=== PATIENT | female | born 1995 | race Caucasian/White ===

== ENCOUNTER 2018-02-26 11:59 | Inpatient (IN) | payer MEDICAID, OTHER ==
[2018-02-26] VITALS (43 sets, daily range): BP systolic 109–156; BP diastolic 53–91
[~2018-02-26] VITALS: Ht 165.1 cm; Wt 134.3 kg
--- NOTE | 2018-02-26 13:11 | History & Physical-OB ---
OB - Chief Complaint & HPI Date/Time Date of Admission: Date of Admission: 02/26/18 Time Seen by Provider: 16:00 Chief Complaint/History OB-Reason for Admission/Chief: Rupture of Membranes Hx : 1 Hx Para: 0 Hx Last Menstrual Period: 06/16/2017 Expected Date of Delivery: Mar 19, 2018 Gestational Age in Weeks: 37 Gestational Age in Days: 0 Other reason for admission: Premature Rupture of Membranes 37 weeks Gestation Admission Nurse Assessment Rev: Yes History of Labs A positive, antibody screen negative RPR NR HIV neg Hep B Neg Hep C Neg Varicella Immune Rubella Immune Urine Cx no growth Urine Drug Screen Neg QNatal - normal, male fetus Quad Screen - normal 1 hour GTT - 116 Allergies and Home Medications Allergies Coded Allergies: Penicillins (Verified Allergy, Unknown, 02/26/18) Patient Home Medication List Home Medication List Reviewed: Yes OB - History Hx of Present Care: Yes Ultrasounds: Normal mid trimester US Obstetrical Complications: None Medical Complications: Other (Morbid Obesity, Hx Depression, Constipation, Heartburn, Insomnia) Information Induced Hypertension: No Maternal Gestational Diabetes: No Hemorrhage: No Obstetrical History Hx : 1 Hx Para: 0 Hx # Term Pregnancies: 0 Hx # Pregnancies: 0 Number of Living Children: 0 Hx Termination: No Hx Total # of Abortions (Spona: 0 Hx Multiple Gestation: No Hx Ectopic : No Hx Stillbirth: No Hx Complication: No Hx Induced Hypertens: No Hx Maternal Gestational Diabet: No Hx Hemorrhage: No Delivery History Hx Dystocia: No Hx Forceps Assisted Delivery: No Hx Vacuum Extraction Assisted: No Hx Placenta Abnormality: No Hx Distress: No Hx Large For Gestational Age I: No Hx Small for Gestational Age I: No Hx Section: No Hx Vaginal Delivery Post C-Sec: No Hx Blood Disorders: No Adverse Rxn to Tranfusion: No Patient Past Medical History Depression Obesity Social History/Family History HIV/AIDS: No Recent Infectious Disease Expo: No Sexually Transmitted Disease: No Alcohol Use: Denies Use Recreational Drug Use: No Smoking Cessation: Never smoker 2nd Hand Smoke Exposure: No Immunizations Hepatitis B: Yes Tetanus Booster (TDap): Less than 5yrs Rubella: immune RPR/VDRL: Negative GBS Status: Negative HBsAG: Negative OB - Admission Exam Physical Exam HEENT: NCAT Heart: Rhythm Normal Lungs: Clear Abdomen: Gravid Extremities: Normal Reflexes: Normal Cervical Dilatation: 3cm Effacement: 75% Station: -2 Membranes: Ruptured Amniotic Fluid: Clear Heart Rate: 130's Accelerations: Accelerations Present Decelerations: No Decelerations Short Term Variability: Present Senior Living Variability: Average (6-25) Contractions on Admission: None OB - Assessment/Plan/Diagnosis Assessment Assessment: rupture of membranes Admission Dx Rupture of Membranes 37 weeks Gestation Complicated by Obesity Admission Status: Inpatient Order (span 2 midnights) Reason for Inpatient Admission: delivery and care Plan Plan: Other Other Plan -admit labs - CBC, Type and Screen -Epidural PRN pain -given that pt had SROM at 0630 and is not lenny, augment with pitocin per protocol -continuous EFM, may place FSE if needed for monitoring -VS per protocol -anticipate delivery Copy Copies To 1: SG SALINAS MARGARET E DO Feb 26, 2018 13:11
[2018-02-26] MEDS ORDERED: OXYTOCIN/NORMAL SALINE 500 ML IV SCH ×2 (13:12→22:21)
[2018-02-26] MEDS ORDERED: CATHETER FLUSH 10 ML SYR IV SCH (14:00)
[2018-02-26] MEDS: D5 LR IV SOLUTION 1,000 ML IV SCH ×2 (14:04→21:35)
--- OUTSIDE RECORDS SUMMARY | 2018-02-26 14:16 | XMS REPORT ---
Author Author KRISH SIEGEL [facility] Address [address] [place] [address] Care Team Providers Care Scene Shifter Name Role Phone KRISH SIEGEL Unavailable PROBLEMS Type Condition ICD9-CM Code YDC88-IV Code Onset Dates Condition Status SNOMED Code Problem Insomnia, unspecified type G47.00 Active 824328149 Problem Heartburn R12 Active 47608776 Problem Nausea and vomiting during O21.9 Active 81289166 Problem BMI 40.0-44.9, adult Z68.41 Active 646579327 Problem Encounter for screening for Streptococcus B Z36.85 Active 493904887 Problem Uterine size-date discrepancy in third trimester O26.843 Active 931019350 Problem Diseases of the digestive system complicating , third trimester O99.613 Active 92849112 Problem Supervision of normal first in third trimester Z34.03 Active 66426408 Problem Constipation, unspecified K59.00 Active 42744785 Problem Obesity complicating , third trimester O99.213 Active 733021342261 ALLERGIES Substance Reaction Event Type Date Status Penicillin V Potassium hives Drug Allergy Oct, Active ENCOUNTERS Encounter Location Date Diagnosis [facility] [address] [facility] [id number][place] [id number] Feb, [facility] [address] [facility] [id number][place] [id number] Jan, [facility] [address] [id number][place] [id number] Jan, Supervision of normal first in third trimester Z34.03 ; Uterine size-date discrepancy in third trimester O26.843 ; Diseases of the digestive system complicating , third trimester O99.613 ; Constipation, unspecified K59.00 ; Heartburn R12 ; Nausea and vomiting during O21.9 ; Obesity complicating , third trimester O99.213 ; Insomnia, unspecified type G47.00 ; BMI 40.0-44.9, adult Z68.41 and Encounter for screening for Streptococcus B Z36.85 [facility] [id number] [place] [id number] Jan, Supervision of normal first in third trimester Z34.03 ; Diseases of the digestive system complicating , third trimester O99.613 ; Heartburn R12 ; Obesity complicating , third trimester O99.213 ; Constipation, unspecified K59.00 ; Insomnia, unspecified type G47.00 ; Uterine size-date discrepancy in third trimester O26.843 and BMI 45.0-49.9, adult Z68.42 [employer] [id number], [place] [id number] Dec, [facility] [id number], [place] [id number] Dec, Supervision of normal first in third trimester Z34.03 ; Encounter for immunization Z23 ; Nausea and vomiting during O21.9 ; Obesity complicating , third trimester O99.213 ; Diseases of the digestive system complicating , third trimester O99.613 ; Heartburn R12 and Constipation, unspecified K59.00 [facility] [employer] [id number][place] [id number] Dec, Supervision of normal first in third trimester Z34.03 ; Obesity complicating , third trimester O99.213 ; Diseases of the digestive system complicating , third trimester O99.613 ; Constipation , unspecified K59.00 ; Heartburn R12 ; Insomnia, unspecified type G47.00 ; Nausea and vomiting during O21.9 and BMI 45.0-49.9, adult Z68.42 [employer] [id number], [place] [id number] November, [employer] [id number], [place] [id number] November, Obesity complicating , third trimester O99.213 ; Supervision of normal first in third trimester Z34.03 ; Constipation, unspecified K59.00 ; Diseases of the digestive system complicating , third trimester O99.613 ; Heartburn R12 ; Nausea and vomiting during O21.9 and BMI 45.0-49.9, adult Z68.42 [facility] [address] [id number][place] [id number] November, [facility] [address] [id number], [place] [id number] Oct, Supervision of normal first in second trimester Z34.02 ; Insomnia, unspecified type G47.00 ; Obesity complicating in second trimester O99.212 ; Heartburn R12 ; Other specified related conditions , second trimester O26.892 ; Nausea and vomiting during O21.9 and BMI 40.0-44.9, adult Z68.41 [facility] [address] [facility] [id number][place] [id number] Oct, [facility] [address] [address] [id number][place] [id number] Oct, Dental examination Z01.20 [facility] [address] [id number], [place] [id number] Sep, Supervision of normal first in second trimester Z34.02 ; Obesity complicating in second trimester O99.212 and Insomnia, unspecified type G47.00 [facility] [address] [id number][place] [id number] Sep, Leukorrhea, vaginal, noninfectious N89.8 [facility] [address] [id number], [place] [id number] Sep, Supervision of normal first in first trimester Z34.01 and Obesity affecting in first trimester O99.211 [facility] [address] [address] [id number], [place] [id number] Aug, Supervision of normal first in first trimester Z34.01 and Obesity affecting in first trimester O99.211 [facility] [address] [id number][place] [id number] Aug, [facility] [address] [id number], [place] [id number] Aug, Supervision of normal first in first trimester Z34.01 and Obesity affecting in first trimester O99.211 [facility] [address] [id number], [place] [id number] Jul, [facility] [address] [id number], [place] [id number] Jul, BMI 40.0-44.9, adult Z68.41 ; Supervision of normal first in first trimester Z34.01 ; Leukorrhea, vaginal, noninfectious N89.8 and Obesity affecting in first trimester O99.211 [place] [id number] [place] [address] Jul, [facility] [address] [id number][place] [address] Jun, Amenorrhea N91.2 [facility] [id number], [place] [id number] Jun, Strep throat J02.[address] [place] [id number] May, Abscess L02.91 [facility] [address]00565100[place], [place] [address] Jun, Vaginal discharge N89.8 ; Cellulitis, unspecified L03.90 ; Cutaneous abscess, unspecified L02.91 and Obesity E66.[address] [place] [id number] Mar, Abscess and cellulitis 682.[address] [place] [id number] Mar, Abscess and cellulitis 682.9 [place] [id number] [id number] Feb, Deep folliculitis 704.[address] Skin [address] [facility] [address] [id number], [place] [address] 16 Dec, 2014 Conjunctivitis 372.30 and Environmental allergies V15.09 [facility] [address]00565100[place], [place] [address] [address], [address] [facility] [address] [id number], [place] [address] Oct, [facility] [address]100[place], [place] [address] Sep, [facility] [address] [id number], [place] [address] Sep, [facility] [address]00565[place] [address] Jul, [facility] [address] [id number], [place] [address] Jul, [facility] [address]65100[place], [place] [address] May, [facility] [address] [id number], [place] [address] May, [facility] [address]65100[place], [place] [address] Apr, [facility] [address] [id number], [place] [address] Apr, [facility] [address]65100[place], [place] [address] Apr, [facility] [address] [id number], [place] [address] Apr, [facility] [address]65100[place], [place] [address] Mar, [facility] [address] [id number], [place] [address] Mar, [facility] [address] [place] [address] 23 Mar, 2014 [facility] [place] [facility] [address] [id number] [place] [address] 23 Mar, 2014 [facility] [place] [facility] [address] [id number] [place] [address] 16 Mar, 2014 [facility] [place] [facility] [address] [id number] [place] [address] 16 Mar, 2014 [facility] [place] [facility] [address] [id number] [place] [address] 15 Mar, 2014 [facility] [place] [facility] [address] [id number] [place] [address] 15 Mar, 2014 [facility] [place] [facility] [address] [id number] [place] [address] Mar, [facility] [place] [facility] [address] [id number] [place] [address] Mar, [facility] [address] [facility] [id number][place] [id number] Oct, [facility] [place] [facility] [address] [id number] [place] [address] Oct, [facility] [address] [facility] [id number][place] [id number] Oct, [facility] [place] [facility] [address] [id number][place] [address] Oct, [facility] [place] [facility] [address] [id number], [place] [address] Aug, [facility] [place] [facility] [address] [id number] [place] [address] Aug, [facility] [place] [facility] [address] [id number] [place] Mar, [facility] [place] [facility] [address] [id number] [place] [address] November, [facility] [place] [facility] [address] [facility] [id number] [place] [address] November, [facility] [address] [facility] [id number], [place] [address] Oct, [facility] [address] [id number], [place] [address] Oct, [facility] [address] [id number], [place] [address] Aug, [facility] [address] [id number], [place] [address] May, [facility] [address] [id number], [place] [address] May, [facility] [address] [id number], [place] [address] May, IMMUNIZATIONS No Known Immunizations SOCIAL HISTORY Never Assessed REASON FOR VISIT nina/prophy PLAN OF CARE Activity Details Follow Up 30min Restorative UR Reason: VITAL SIGNS Blood pressure systolic 120 mmHg 2017-10-22 Blood pressure diastolic 82 mmHg 2017-10-22 MEDICATIONS Medication Instructions Dosage Frequency Start Date End Date Duration Status Benadryl Active Ambien 10 mg Orally Once a day 1 tablet at bedtime as needed 24h Sep, 28 days Active 1 Active Tylenol Active RESULTS No Results PROCEDURES Procedure Date Ordered Result Body Site COMP ORAL EVALUATION - NEW/EST PT October 22, 2017 INTRAORL-PERIAPICAL 1 FILM [id number] October 22, 2017 PROPHYLAXIS - ADULT October 22, 2017 BITEWINGS - FOUR FILMS October 22, 2017 INSTRUCTIONS MEDICATIONS ADMINISTERED No Known Medications MEDICAL (GENERAL) HISTORY Type Description Date Medical History obesity Medical History headache symdrome Medical History psychiatric disorders depression Medical History due date 03/19/2018 Surgical History Lizella Teeth Hospitalization History [facility]--Couldnt fill baby move for over an hour. Sent home 01/2018
--- OUTSIDE RECORDS SUMMARY | 2018-02-26 14:17 | XMS REPORT ---
Author Author SG SALINAS Organization [facility] Address [address] [place] [address] Care Team Providers Care Precast Worker Name Role Phone SG SALINAS Unavailable PROBLEMS Type Condition ICD9-CM Code [id number] Code Onset Dates Condition Status SNOMED Code Problem BMI 40.0-44.9, adult Z68.41 Active 525134485 Problem Nausea and vomiting during O21.9 Active 22503636 Problem Insomnia, unspecified type G47.00 Active 386315229 Problem Uterine size-date discrepancy in third trimester O26.843 Active 192572424 Problem Constipation, unspecified K59.00 Active 36384172 Problem Supervision of normal first in third trimester Z34.03 Active 56476348 Problem Heartburn R12 Active 32391100 Problem Obesity complicating , third trimester O99.213 Active 570045252021 Problem Diseases of the digestive system complicating , third trimester O99.613 Active 66340450 ALLERGIES Substance Reaction Event Type Date Status Penicillin V Potassium hives Drug Allergy Sep, Active ENCOUNTERS Encounter Location Date Diagnosis [facility] [address] [facility] [id number] [place] [id number] Jan, [place] [address] EZ-AppsE [id number], [place] [id number] Jan, Supervision of normal first in third trimester Z34.03 ; Diseases of the digestive system complicating , third trimester O99.613 ; Heartburn R12 ; Obesity complicating , third trimester O99.213 ; Constipation, unspecified K59.00 ; Insomnia, unspecified type G47.00 ; Uterine size-date discrepancy in third trimester O26.843 and BMI 45.0-49.9, adult Z68.42 [facility] Afrigator InternetE [id number], [place] [id number] Dec, [facility] [address] [id number], [place] [address] Dec, Supervision of normal first in third trimester Z34.03 ; Encounter for immunization Z23 ; Nausea and vomiting during O21.9 ; Obesity complicating , third trimester O99.213 ; Diseases of the digestive system complicating , third trimester O99.613 ; Heartburn R12 and Constipation, unspecified K59.00 [facility] [id number], [place] [address] Dec, Supervision of normal first in third trimester Z34.03 ; Obesity complicating , third trimester O99.213 ; Diseases of the digestive system complicating , third trimester O99.613 ; Constipation , unspecified K59.00 ; Heartburn R12 ; Insomnia, unspecified type G47.00 ; Nausea and vomiting during O21.9 and BMI 45.0-49.9, adult Z68.42 [facility] A[employer] InternetE [id number], [place] [id number] November, [employer] [id number], [place] [address] November, Obesity complicating , third trimester O99.213 ; Supervision of normal first in third trimester Z34.03 ; Constipation, unspecified K59.00 ; Diseases of the digestive system complicating , third trimester O99.613 ; Heartburn R12 ; Nausea and vomiting during O21.9 and BMI 45.0-49.9, adult Z68.42 [facility] [id number], [place] [address] November, [facility] [id number] [place] [address] Oct, Supervision of normal first in second trimester Z34.02 ; Insomnia, unspecified type G47.00 ; Obesity complicating in second trimester O99.212 ; Heartburn R12 ; Other specified related conditions , second trimester O26.892 ; Nausea and vomiting during O21.9 and BMI 40.0-44.9, adult Z68.41 [facility] [address] [id number] [place] [id number] Oct, [facility] [address] [id number], [place] [address] Oct, Dental examination Z01.20 [facility] [address] [id number], [place] [address] Sep, Supervision of normal first in second trimester Z34.02 ; Obesity complicating in second trimester O99.212 and Insomnia, unspecified type G47.00 [facility] [address] [id number], [place] [address] Sep, Leukorrhea, vaginal, noninfectious N89.8 [facility] [address] [id number], [place] [address] Sep, Supervision of normal first in first trimester Z34.01 and Obesity affecting in first trimester O99.211 [facility] [address] [id number], [place] [address] Aug, Supervision of normal first in first trimester Z34.01 and Obesity affecting in first trimester O99.211 [facility] [address] [id number], [place] [address] Aug, [facility] [address] [id number], [place] [address] Aug, Supervision of normal first in first trimester Z34.01 and Obesity affecting in first trimester O99.211 [facility] [address] [id number], [place] [id number] Jul, [facility] [address] [id number], [place] [address] Jul, BMI 40.0-44.9, adult Z68.41 ; Supervision of normal first in first trimester Z34.01 ; Leukorrhea, vaginal, noninfectious N89.8 and Obesity affecting in first trimester O99.211 [facility] [address]005[address] [address] Jul, [facility] [address] [id number], [place] [address] Jun, Amenorrhea N91.2 [facility] [address] [id number], [place] [id number] Jun, Strep throat J02.0 [place] [id number] [place] [id number] May, Abscess L02.91 [place] [address] [address] [place] [id number] [place] [address] Jun, Vaginal discharge N89.8 ; Cellulitis, unspecified L03.90 ; Cutaneous abscess, unspecified L02.91 and Obesity E66.9 [place] [id number] [place] [id number] Mar, Abscess and cellulitis 682.9 [place] [id number] [place] [id number] Mar, Abscess and cellulitis 682.9 [place] [id number] [place] [id number] Feb, Deep folliculitis 704.8 and Skin candidiasis 112.3 [place] [address] [place] [place] [id number] [place] [address] Dec, Conjunctivitis 372.30 and Environmental allergies V15.09 [place] [address] [place] [id number] [place] [address]- 2643 14 Oct, 2014 [facility] [address] [id number] [place] [address] 6383 Oct, [place] [address] [address] [place] [id number] [place] [address] Sep, [facility] [address] [place] [id number] [place] [address]- [address] Sep, [id number] [address] 08 Jul, 2014 [facility] [place] [facility] [address] [id number] [place] [address] 08 Jul, 2014 [facility] [place] [facility] [address] [id number], [place] [address] May, [facility] [place] [facility] [address] [id number] [place] [address] May, [facility] [place] [facility] [address] [id number] [place] [address] 4760 Apr, [facility] [place] [facility] [address] [id number] [place] [address]- 7231 Apr, [facility] [place] [facility] [address] [id number] [place] [address]- 360[address] Apr, [facility] [place] [facility] [address] [id number], [place] [address] 17[address] Apr, [facility] [place] [facility] [address] [id number], [place] [address] 25 Mar, 2013 [facility] [place] [facility] [address] [id number] [place] [address] 5[address] 25 Mar, 2013 [facility] [place] [facility] [address] [id number] [place] [address] 23 Mar, 2013 [facility] [place] [facility] [address] [id number] [place] [address] 8667 23 Sep, 2013 [facility] [place] [facility] [address] [id number], [place] [address] 16 Sep, 2013 [facility] [place] [facility] [address] [id number], [place] [address] 16 Sep, 2013 [facility] [place] [facility] [address] [id number][place] [address] 15 Mar, 2013 [facility] [place] [facility] [address] [id number][place] [address] 38[address] 15 Mar, 2013 [facility] [place] [facility] [address] [id number] [place] [address]- 1166 Mar, [facility] [address] [id number] [place] [address] 59[address] Mar, [facility] [address] [id number] [place] [id number] Oct, [facility] [address] [id number] [place] [address] Oct, [facility] [address] [id number] [place] [id number] Oct, [facility] [address] [id number] [place] [address] 1386 Oct, [facility] [place] [facility] [address] [id number] [place] [address]- 1826 Aug, [facility] [address] [id number] [place] [address] 5143 Aug, [facility] [address] [id number] [place] [address]- 8127 Mar, [facility] [place] [facility] [address] [id number] [place] [address] 60[address] November, [facility] [address] [id number] [place] [address]- 3[address] November, [facility] [place] [facility] [address] [id number] [place] [address]- 6346 Oct, [facility] [place] [facility] [address] [id number] [place] [address]- 2466 Oct, [facility] [place] [facility] [address] [id number] [place] [address]- 2537 Aug, [facility] [place] [facility] [address] [id number] [place] [address]- 7021 May, [facility] [place] [facility] [address] [id number] [place] [address]- 3892 May, [facility] [address] [id number] [place] [address] May, IMMUNIZATIONS No Known Immunizations SOCIAL HISTORY Never Assessed REASON FOR VISIT OB f/u-ishaan RN PLAN OF CARE Activity Details Follow Up 4 Weeks Reason: Pending Test GC/CHLAM URINE (STATE) VITAL SIGNS Height 66 in 2017-10-14 Weight 267.8 lbs 2017-10-14 Temperature 98.7 degrees Fahrenheit 2017-10-14 Heart Rate 107 bpm 2017-10-14 Respiratory Rate 16 2017-10-14 BMI 43.224 kg/m2 2017-10-14 Blood pressure systolic 116 mmHg 2017-10-14 Blood pressure diastolic 64 mmHg 2017-10-14 MEDICATIONS Medication Instructions Dosage Frequency Start Date End Date Duration Status Ambien 10 mg Orally Once a day 1 tablet at bedtime as needed 24h Sep, 28 days Active 1 Active RESULTS No Results PROCEDURES Procedure Date Ordered Result Body Site LAB NOT BILLED BY [facility] October 14, 2017 VENMAYELIN, ROUTINE* October 14, 2017 No Charge October 14, 2017 INSTRUCTIONS MEDICATIONS ADMINISTERED No Known Medications MEDICAL (GENERAL) HISTORY Type Description Date Medical History obesity Medical History headache symdrome Medical History psychiatric disorders depression Medical History due date 03/19/2018 Surgical History [facility] Hospitalization [facility]--Couldnt fill baby move for over an hour. Sent home 01/2018
--- OUTSIDE RECORDS SUMMARY | 2018-02-26 14:17 | XMS REPORT ---
Author Author SG SALINAS Organization [facility] Address [address] [place] [address] Care Team Providers Care Bid Analyst Name Role Phone REVAMARGEPATYKHARI FriendT Unavailable PROBLEMS Type Condition ICD9-CM Code [id number] Code Onset Dates Condition Status SNOMED Code Problem BMI 40.0-44.9, adult Z68.41 Active 716001407 Problem Nausea and vomiting during O21.9 Active 49659690 Problem Insomnia, unspecified type G47.00 Active 847973220 Problem Uterine size-date discrepancy in third trimester O26.843 Active 713375547 Problem Constipation, unspecified K59.00 Active 15170773 Problem Supervision of normal first in third trimester Z34.03 Active 20873177 Problem Heartburn R12 Active 08163501 Problem Obesity complicating , third trimester O99.213 Active 392911361136 Problem Diseases of the digestive system complicating , third trimester O99.613 Active 17739333 ALLERGIES No Information ENCOUNTERS Encounter Location Date Diagnosis [facility] [address] [facility] [id number][place] [id number] Jan, [place] [address] [employer] [id number] [place] [address] Jan, Supervision of normal first in third trimester Z34.03 ; Diseases of the digestive system complicating , third trimester O99.613 ; Heartburn R12 ; Obesity complicating , third trimester O99.213 ; Constipation, unspecified K59.00 ; Insomnia, unspecified type G47.00 ; Uterine size-date discrepancy in third trimester O26.843 and BMI 45.0-49.9, adult Z68.[address] Zipidee [id number] HAVEN, [place] [id number] Dec, [facility] Ofuz [id number] [place] [address] Dec, Supervision of normal first in third trimester Z34.03 ; Encounter for immunization Z23 ; Nausea and vomiting during O21.9 ; Obesity complicating , third trimester O99.213 ; Diseases of the digestive system complicating , third trimester O99.613 ; Heartburn R12 and Constipation, unspecified K59.00 [facility] [employer] [address] [id number] HAVEN, [place] [id number] Dec, Supervision of normal first in third trimester Z34.03 ; Obesity complicating , third trimester O99.213 ; Diseases of the digestive system complicating , third trimester O99.613 ; Constipation , unspecified K59.00 ; Heartburn R12 ; Insomnia, unspecified type G47.00 ; Nausea and vomiting during O21.9 and BMI 45.0-49.9, adult Z68.42 [facility] Nutmeg EducationE [id number] [place] [id number] November, [facility]ITAL[facility]ipClub[facility] [id number] [place] [address] November, Obesity complicating , third trimester O99.213 ; Supervision of normal first in third trimester Z34.03 ; Constipation, unspecified K59.00 ; Diseases of the digestive system complicating , third trimester O99.613 ; Heartburn R12 ; Nausea and vomiting during O21.9 and BMI 45.0-49.9, adult Z68.42 [employer] [id number] [place] [id number] November, CreditShopE [id number] [place] [address] Oct, Supervision of normal first in second trimester Z34.02 ; Insomnia, unspecified type G47.00 ; Obesity complicating in second trimester O99.212 ; Heartburn R12 ; Other specified related conditions , second trimester O26.892 ; Nausea and vomiting during O21.9 and BMI 40.0-44.9, adult Z68.41 [facility] [address] [id number] [place] [id number] Oct, [facility] [address] [id number] HAVEN[place] [address] Oct, Dental examination Z01.20 [facility] [address] [id number] HAVEN, [place] [address] Sep, Supervision of normal first in second trimester Z34.02 ; Obesity complicating in second trimester O99.212 and Insomnia, unspecified type G47.00 [facility] [place] [address] [facility] [id number], [place] [address] Sep, Leukorrhea, vaginal, noninfectious N89.8 [facility] [address] [id number] [place]AVEN[place] [id number] Sep, Supervision of normal first in first trimester Z34.01 and Obesity affecting in first trimester O99.211 [facility] [address] [id number] [place]AVEN, [place] [address] Aug, Supervision of normal first in first trimester Z34.01 and Obesity affecting in first trimester O99.211 [facility] [address] [id number] [place]AV[place] [id number] Aug, [facility] [address] [employer] [id number] [place], [place] [id number] Aug, Supervision of normal first in first trimester Z34.01 and Obesity affecting in first trimester O99.211 [facility]ENTERSIMTEKALVARAD[facility] [address] [id number] [place]AVEN[place] [id number] Jul, [facility]ERSIMTEKALVARAD[facility] [address] [id number] [place] [id number] Jul, BMI 40.0-44.9, adult Z68.41 ; Supervision of normal first in first trimester Z34.01 ; Leukorrhea, vaginal, noninfectious N89.8 and Obesity affecting in first trimester O99.211 [facility] [address]00565100[place] [address] Jul, [facility] DIXONALVARADO [address] [facility] [address] [id number] HAVEN, [place] [id number] Jun, Amenorrhea N91.2 [facility] DIXONALVARAD[address] [facility] [address] [id number] [place]AVEN[place] [id number] Jun, Strep throat J02.0 [place] [id number] [place] [id number] May, Abscess L02.91 [place] [address] [place] [id number] [place] [address]46- 9076 Jun, Vaginal discharge N89.8 ; Cellulitis, unspecified L03.90 ; Cutaneous abscess, unspecified L02.91 and Obesity E66.9 [place] [id number] [place] [id number] Mar, Abscess and cellulitis 682.9 [address] [id number] [place] [address] [id number] Mar, Abscess and cellulitis 682.9 [address] [id number] [place] [address] [id number] Feb, Deep folliculitis 704.8 and Skin candidiasis 112.3 [place] [address] [place] [id number] [place] [address]- 5006 Dec, Conjunctivitis 372.30 and Environmental allergies V15.09 [place] [address] [place] [id number] [place] [address] 27268- 1076 14 Oct, 2014 [place] [address] [place] [id number] [place] [place] [address] 73359- 8062 Oct, [place] [address] [place] [id number] [place] [place] [address] 98575- 6181 Sep, [facility] [address] [place] [id number] [place] [address] 23832- 1506 Sep, [place] [id number] [place] [id number] Jul, [facility] [place] [facility] [address] [id number] [place] [address]- 7600 Jul, [facility] [place] [facility] [address] [id number] [place] [address]- 1632 May, [facility] [place] [facility] [address] [id number] [place] [address]- 0543 May, [facility] [place] [facility] [address] [id number] [place] [address]- 9625 Apr, [facility] [place] [facility] [address] [id number] [place] [address]- 4403 Apr, [facility] [place] [facility] [address] [id number] [place] [address]- 5222 Apr, [facility] [place] [facility] [address] [id number] [place] [address]- 9817 Apr, [facility] [place] [facility] [address] [id number] [place] [address]- 0519 25 Mar, 2013 [facility] [place] [facility] [address] [id number] [place] [address]- 8190 25 Mar, 2014 [facility] [place] [facility] [address] [id number] [place] [address]- 8111 23 Mar, 2013 [facility] [place] [facility] [address] [id number] [place] [address]- 0764 23 Mar, 2013 [facility] [place] [facility] [address] [id number] [address]- 9210 16 Sep, 2013 [facility] [place] [facility] [address] [id number] [place] [address]- 4916 16 Sep, 2013 [facility] [place] [facility] [address] [id number] [place] [address]- 3223 15 Mar, 2013 [facility] [place] [facility] [address] [id number] [place] [address]- 0618 15 Mar, 2013 [facility] [place] [facility] [address] [id number], [place] [address]- 8886 Mar, [facility] [address] [id number] [place] [address]- 9586 Mar, [facility] [place] [address] [id number] [place] [id number] Oct, [facility] [address] [facility] [id number] [place] [address]- 2546 Oct, [facility] [address] [facility] [id number] [place] [id number] Oct, [facility] [address] [id number] [place] [address]- 1912 Oct, [facility] [place] [facility] [address] [id number] [place] [address]- 9974 Aug, [facility] [place] [facility] [address] [facility] [id number] [place] [address]- 4240 Aug, [facility] [place] [facility] [address] [id number] [address]- 6987 Mar, [facility] [place] [facility] [address] [id number] [place] [address]- 3776 November, [facility] [place] [facility] [address] [facility] [id number] [address]- 8541 November, [facility] [place] [facility] [address] [id number] [address]- 4347 Oct, [facility] [place] [facility] [address] [id number] [address]- 7551 Oct, [facility] [place] [facility] [address] [id number] [place] [address]- 9792 Aug, [facility] [place] [facility] [address] [id number] [address]- 4229 May, [facility] [place] [facility] [address] [facility] [id number] [place] [address]- 9601 May, [facility] [place] [facility] [address] [facility] [id number] [place] May, IMMUNIZATIONS No Known Immunizations SOCIAL HISTORY Never Assessed REASON FOR VISIT phone call PLAN OF CARE VITAL SIGNS MEDICATIONS Medication Instructions Dosage Frequency Start Date End Date Duration Status Fluconazole 150 MG Orally every 3 days 1 tablet Jul, Active RESULTS No Results PROCEDURES No Known procedures INSTRUCTIONS MEDICATIONS ADMINISTERED No Known Medications MEDICAL (GENERAL) HISTORY Type Description Date Medical History obesity Medical History headache symdrome Medical History psychiatric disorders depression Medical History due date 03/19/2018 Surgical History [facility] Hospitalization History [facility]--Couldnt fill baby move for over an hour. Sent home 01/2018
--- OUTSIDE RECORDS SUMMARY | 2018-02-26 14:17 | XMS REPORT ---
Author Author OSWALD Kraus [facility] Address [address] [place] [address] Care Team Providers Care Special Forces Officer Name Role Phone OSWALD Kraus Unavailable PROBLEMS Type Condition ICD9-CM Code JEO53-IP Code Onset Dates Condition Status SNOMED Code Problem BMI 40.0-44.9, adult Z68.41 Active 376787336 Problem Nausea and vomiting during O21.9 Active 89131428 Problem Insomnia, unspecified type G47.00 Active 789737443 Problem Uterine size-date discrepancy in third trimester O26.843 Active 481729099 Problem Constipation, unspecified K59.00 Active 85384474 Problem Supervision of normal first in third trimester Z34.03 Active 60811637 Problem Heartburn R12 Active 87226610 Problem Obesity complicating , third trimester O99.213 Active 986396640430 Problem Diseases of the digestive system complicating , third trimester O99.613 Active 03884999 ALLERGIES No Information ENCOUNTERS Encounter Location Date Diagnosis [facility] [address] [facility] [id number] [id number] Jan, [address] [id number][place] [id number] Jan, Supervision of normal first in third trimester Z34.03 ; Diseases of the digestive system complicating , third trimester O99.613 ; Heartburn R12 ; Obesity complicating , third trimester O99.213 ; Constipation, unspecified K59.00 ; Insomnia, unspecified type G47.00 ; Uterine size-date discrepancy in third trimester O26.843 and BMI 45.0-49.[address], [address] [facility] [address] [facility] [id number][place] [id number] Dec, [address] [id number] [place] [address] Dec, Supervision of normal first in third trimester Z34.03 ; Encounter for immunization Z23 ; Nausea and vomiting during O21.9 ; Obesity complicating , third trimester O99.213 ; Diseases of the digestive system complicating , third trimester O99.613 ; Heartburn R12 and Constipation, unspecified K59.00 [facility] PlanetHumera [address] [id number], [place] [address] Dec, Supervision of normal first in third trimester Z34.03 ; Obesity complicating , third trimester O99.213 ; Diseases of the digestive system complicating , third trimester O99.613 ; Constipation , unspecified K59.00 ; Heartburn R12 ; Insomnia, unspecified type G47.00 ; Nausea and vomiting during O21.9 and BMI 45.0-49.9, adult Z68.42 [facility]ALSkin AnalyticsTER Tech CocktailE [id number], [place] [id number] November, [facility]OSPITALCuralateE [id number] [place] [address] November, Obesity complicating , third trimester O99.213 ; Supervision of normal first in third trimester Z34.03 ; Constipation, unspecified K59.00 ; Diseases of the digestive system complicating , third trimester O99.613 ; Heartburn R12 ; Nausea and vomiting during O21.9 and BMI 45.0-49.9, adult Z68.42 [facility]ALSkin AnalyticsTER Tech CocktailE [id number] [place] [id number] November, [facility]ITALCuralate[facility] [id number] [place] [address] Oct, Supervision of normal first in second trimester Z34.02 ; Insomnia, unspecified type G47.00 ; Obesity complicating in second trimester O99.212 ; Heartburn R12 ; Other specified related conditions , second trimester O26.892 ; Nausea and vomiting during O21.9 and BMI 40.0-44.9, adult Z68.41 [facility] [address] [id number], [place] [address] Oct, [facility]ITAL[facility] [address] [id number], [place] [address] Oct, Dental examination Z01.20 [facility] [address] [id number], [place] [address] Sep, Supervision of normal first in second trimester Z34.02 ; Obesity complicating in second trimester O99.212 and Insomnia, unspecified type G47.00 [facility]US [address] [id number], [place] [id number] Sep, Leukorrhea, vaginal, noninfectious N89.8 [facility] [address] [id number], [place] [address] Sep, Supervision of normal first in first trimester Z34.01 and Obesity affecting in first trimester O99.211 [facility] [address] [id number], [place] [address] Aug, Supervision of normal first in first trimester Z34.01 and Obesity affecting in first trimester O99.211 [facility]IALHum[facility] [address] [id number], [place] [id number] Aug, [facility] [address] [id number], [place] [address] Aug, Supervision of normal first in first trimester Z34.01 and Obesity affecting in first trimester O99.211 [facility]IALGrid MobileALVARADO [address] [id number], [place] [address] Jul, [facility]IALGrid MobileALVARADO MusicIP[address] [id number], [place] [address] Jul, BMI 40.0-44.9, adult Z68.41 ; Supervision of normal first in first trimester Z34.01 ; Leukorrhea, vaginal, noninfectious N89.8 and Obesity affecting in first trimester O99.211 [facility] [address]00565100[place], [place] [address] Jul, [facility]IALHum[facility] DIXONALVARADO [address] [facility] [address] [id number], [place] [id number] Jun, Amenorrhea N91.2 [facility] MEM[facility]IALHumera DIXONALVARADO [address] [facility] [address] [id number], [place] [address] Jun, Strep throat J02.0 [place] [id number] [place] [id number] May, Abscess L02.91 [place] [address] [place] [id number] [place] [address]- [address]46 Jun, Vaginal discharge N89.8 ; Cellulitis, unspecified L03.90 ; Cutaneous abscess, unspecified L02.91 and Obesity E66.9 [place] [id number] [place] [id number] Mar, Abscess and cellulitis 682.[address] [id number] Mar, Abscess and cellulitis 682.9 [place] [id number] [place] [id number] Feb, Deep folliculitis 704.8 and Skin candidiasis 112.3 [place] [address] [place] [id number] [place] [address]46 Dec, Conjunctivitis 372.30 and Environmental allergies V15.09 [place] [address] [place] [id number] [place] [address]- 3252 14 Oct, 2014 [place] [address] [place] [id number] [place] [address]- 3500 Oct, [place] [address] [address] Sep, [place] [address] [place] [id number] [place] [address] Sep, [place] [id number] [place] [id number] Jul, [facility] [place] [facility] [address] [id number] [place] [address] 08 Jul, 2014 [facility] [place] [facility] [address] [id number] [place] [address] May, [facility] [place] [facility] [address] [id number] [place] [address]- 2445 May, [facility] [place] [facility] [address] [id number] [place] [address]- 3685 Apr, [facility] [place] [facility] [address] [id number] [place] [address]- 6192 08 Apr, 2014 [facility] [place] [facility] [address] [id number] [place] [address]- 8887 Apr, [facility] [place] [facility] [address] [id number] [place] [address] 3[address] Apr, [facility] [place] [facility] [address] [id number] [place] [address]- 4441 25 Mar, 2013 [facility] [place] [facility] [address] [id number] [place] [address]- 1036 25 Mar, 2013 [facility] [place] [facility] [address] [id number] [place] [address]- 4791 23 Sep, 2013 [facility] [place] [facility] [address] [id number] [place] [address]- 5080 23 Sep, 2013 [facility] [place] [facility] [address] [id number] [place] [address]- 1713 16 Sep, 2013 [facility] [place] [facility] [address] [id number] [place] [address]- 2543 16 Sep, 2013 [facility] [place] [facility] [address] [id number] [place] [address]- 2542 15 Sep, 2013 [facility] [place] [facility] [address] [id number] [place] [address]- 6701 15 Sep, 2013 [facility] [place] [facility] [address] [id number], [place] [address] Mar, [facility] [address] [id number] [place] [address] 9226 Mar, [facility] [address] [facility] [id number] [place] [id number] Oct, [facility] [address] [facility] [id number], [place] [address] Oct, [facility] [address] [facility] [id number] [place] [id number] Oct, [facility] [address] [id number] [place] [address]- 2926 Oct, [facility] [place] [facility] [address] [id number] [place] [address]- 5436 Aug, [facility] [place] [facility] [address] [facility] [id number], [place] [address] Aug, [facility] [place] [facility] [address] [id number], [place] [address] 90[address] Mar, [facility] [place] [facility] [address] [facility] [id number], [place] [address] 6[address] November, [facility] [place] [facility] [address] [facility] [id number], [place] [address] November, [facility] [place] [facility] [address] [facility] [id number], [place] [address] 8906 Oct, [facility] [place] [facility] [address] [id number], [place] [address] 5[address] Oct, [facility] [place] [facility] [address] [id number], [place] [address]- 8015 Aug, [facility] [place] [facility] [address] [facility] [id number], [place] [address]- 3286 May, [facility] [place] [facility] [address] [facility] [id number][place] [address] 0[address] May, [facility] [place] [facility] [address] [id number], [place]897[place]- 8833 May, IMMUNIZATIONS No Known Immunizations SOCIAL HISTORY Never Assessed REASON FOR VISIT Referral Appointment Notification PLAN OF CARE VITAL SIGNS MEDICATIONS Unknown Medications RESULTS No Results PROCEDURES No Known procedures INSTRUCTIONS MEDICATIONS ADMINISTERED No Known Medications MEDICAL (GENERAL) HISTORY Type Description Date Medical History obesity Medical History headache symdrome Medical History psychiatric disorders depression Medical History due date 03/19/2018 Surgical History [place] [facility] Hospitalization History [facility]--Couldnt fill baby move for over an hour. Sent home 01/2018
--- OUTSIDE RECORDS SUMMARY | 2018-02-26 14:17 | XMS REPORT ---
Author Author SG SALINAS Organization [facility] Address [address] [place] [address] Care Team Providers Care Prospecting Observer Name Role Phone REVAMARGEAPTYSG Friend Unavailable PROBLEMS Type Condition ICD9-CM Code ZWN09-CE Code Onset Dates Condition Status SNOMED Code Problem BMI 40.0-44.9, adult Z68.41 Active 863127073 Problem Nausea and vomiting during O21.9 Active 44926322 Problem Insomnia, unspecified type G47.00 Active 554608380 Problem Uterine size-date discrepancy in third trimester O26.843 Active 417086566 Problem Constipation, unspecified K59.00 Active 52944017 Problem Supervision of normal first in third trimester Z34.03 Active 01239579 Problem Heartburn R12 Active 41676322 Problem Obesity complicating , third trimester O99.213 Active 313128206096 Problem Diseases of the digestive system complicating , third trimester O99.613 Active 00273623 ALLERGIES No Information ENCOUNTERS Encounter Location Date Diagnosis [facility] [address] [facility] [id number] [address] Jan, [place] [address] anydooR [id number] [place] [id number] Jan, Supervision of normal first in third trimester Z34.03 ; Diseases of the digestive system complicating , third trimester O99.613 ; Heartburn R12 ; Obesity complicating , third trimester O99.213 ; Constipation, unspecified K59.00 ; Insomnia, unspecified type G47.00 ; Uterine size-date discrepancy in third trimester O26.843 and BMI 45.0-49.9, adult Z68.[address] [employer] Me [id number] [place] [id number] Dec, [facility] Adcast [id number] [place] [id number] Dec, Supervision of normal first in third trimester Z34.03 ; Encounter for immunization Z23 ; Nausea and vomiting during O21.9 ; Obesity complicating , third trimester O99.213 ; Diseases of the digestive system complicating , third trimester O99.613 ; Heartburn R12 and Constipation, unspecified K59.00 [facility]ENTERCogniCor TechnologiesTER [address] [id number] [place] [id number] Dec, Supervision of normal first in third trimester Z34.03 ; Obesity complicating , third trimester O99.213 ; Diseases of the digestive system complicating , third trimester O99.613 ; Constipation , unspecified K59.00 ; Heartburn R12 ; Insomnia, unspecified type G47.00 ; Nausea and vomiting during O21.9 and BMI 45.0-49.9, adult Z68.42 [facility]ENTERCogniCor TechnologiesTER Advanced CirculatoryE [id number] [place] [address] November, [facility]ENTERGroup Phoebe IngenicaE [id number] [place] [address] November, Obesity complicating , third trimester O99.213 ; Supervision of normal first in third trimester Z34.03 ; Constipation, unspecified K59.00 ; Diseases of the digestive system complicating , third trimester O99.613 ; Heartburn R12 ; Nausea and vomiting during O21.9 and BMI 45.0-49.9, adult Z68.42 Polyview MediaE [id number] [place] [id number] November, Polyview MediaE [id number] [place] [id number] Oct, Supervision of normal first in second trimester Z34.02 ; Insomnia, unspecified type G47.00 ; Obesity complicating in second trimester O99.212 ; Heartburn R12 ; Other specified related conditions , second trimester O26.892 ; Nausea and vomiting during O21.9 and BMI 40.0-44.9, adult Z68.41 [facility] [address] [id number] [place] [id number] Oct, [facility]ENTER[facility]ELA [address] [id number] [place] [id number] Oct, Dental examination Z01.20 [facility] [address] [id number] [place] [id number] Sep, Supervision of normal first in second trimester Z34.02 ; Obesity complicating in second trimester O99.212 and Insomnia, unspecified type G47.00 [facility] [place] [address] [facility] [id number], [place] [id number] Sep, Leukorrhea, vaginal, noninfectious N89.8 [facility] [address] [id number] [place] [address] Sep, Supervision of normal first in first trimester Z34.01 and Obesity affecting in first trimester O99.211 [facility] [address] [id number] [place] [id number] Aug, Supervision of normal first in first trimester Z34.01 and Obesity affecting in first trimester O99.211 [facility] [address] [id number] [place] [address] Aug, [facility] [address] [id number] [place] [address] Aug, Supervision of normal first in first trimester Z34.01 and Obesity affecting in first trimester O99.211 [facility] CENTERSix Degrees GamesALVARADO [address] [id number] [place] [address] Jul, [facility]ERS[facility] Degrees GamesALVARADO [address] [id number] [place] [address] Jul, BMI 40.0-44.9, adult Z68.41 ; Supervision of normal first in first trimester Z34.01 ; Leukorrhea, vaginal, noninfectious N89.8 and Obesity affecting in first trimester O99.211 [facility] [address]00565100[place], [place] [address] Jul, [facility] DIXONALVARADO [address] [facility] [address] [id number] [place] [id number] Jun, Amenorrhea N91.2 [facility] DIXONALVARADO [address] [facility] [address] [id number] [place] [id number] Jun, Strep throat J02.0 [place] [id number] [place] [id number] May, Abscess L02.91 [place] [address] [place] [id number] [place] [address]48- 1756 Jun, Vaginal discharge N89.8 ; Cellulitis, unspecified L03.90 ; Cutaneous abscess, unspecified L02.91 and Obesity E66.9 [place] [id number] [place] [address] [id number] Mar, Abscess and cellulitis 682.9 [place] [address] [place] [address] [id number] Mar, Abscess and cellulitis 682.9 [place] [address] [place] [id number] Feb, Deep folliculitis 704.8 and Skin candidiasis 112.3 [place] [address] [place] [id number] [place] [address] 72080- 2516 Dec, Conjunctivitis 372.30 and Environmental allergies V15.09 [place] [address] [place] [id number] [place] [address] 95577- 2276 14 Oct, 2014 [place] [address] [place] [id number] [place] [address] 28275- 3144 Oct, [place] [address] [place] [id number] [place] [address] 02175- 7751 Sep, [facility] [address] [place] [id number] [place] [address] 18851- 2086 Sep, [place] [id number] [place] [address] [id number] Jul, [facility] [place] [facility] [address] [id number] [place] [address]- 6562 Jul, [facility] [place] [facility] [address] [id number] [place] [address]- 8114 May, [facility] [place] [facility] [address] [id number] [place] [address]- 9019 May, [facility] [place] [facility] [address] [id number] [place] [address]- 6544 Apr, [facility] [place] [facility] [address] [id number] [place] [address]- 3801 Apr, [facility] [place] [facility] [address] [id number] [place] [address]- 6773 Apr, [facility] [place] [facility] [address] [id number] [place] [address]- 6929 Apr, [facility] [place] [facility] [address] [id number] [place] [address]- 0677 25 Mar, 2013 [facility] [place] [facility] [address] [id number] [place] [address]- 1800 25 Mar, 2014 [facility] [place] [facility] [address] [id number] [place] [address]- 4990 23 Mar, 2013 [facility] [place] [facility] [address] [id number] [place] [address]- 3538 23 Mar, 2013 [facility] [place] [facility] [address] [id number], [place] [address]- 6416 16 Sep, 2013 [facility] [place] [facility] [address] [id number] [place] [address]- 4987 16 Sep, 2013 [facility] [place] [facility] [address] [id number] [place] [address]- 7753 15 Mar, 2013 [facility] [place] [facility] [address] [id number] [place] [address]- 3876 15 Mar, 2013 [facility] [place] [facility] [address] [id number][place] [address]- 9286 Mar, [facility] [address] [id number] [place] [address]- 2286 Mar, [facility] [place] [address] [id number] [place] [id number] Oct, [facility] [address] [facility] [id number] [place] [address]- 2546 Oct, [facility] [place] [address] [facility] [id number] [place] [id number] Oct, [facility] [address] [id number] [place] [address]- 7075 Oct, [facility] [place] [facility] [address] [id number] [place] [address]- 1716 Aug, [facility] [place] [facility] [address] [facility] [id number] [place] [address]- 0702 Aug, [facility] [place] [facility] [address] [id number] [address]- 9015 Mar, [facility] [place] [facility] [address] [id number] [place] [address]- 1367 November, [facility] [place] [facility] [address] [facility] [id number] [address]- 9252 November, [facility] [place] [facility] [address] [id number][place] [address]- 3540 Oct, [facility] [place] [facility] [address] [id number][place] [address]- 2343 Oct, [facility] [place] [facility] [address] [id number] [place] [address]- 0377 Aug, [facility] [place] [facility] [address] [id number] [address]- 2418 May, [facility] [place] [facility] [address] [facility] [id number] [place] [address]- 7480 May, [facility] [place] [facility] [address] [facility] [id number] [place] [address]- 5613 May, IMMUNIZATIONS No Known Immunizations SOCIAL HISTORY Never Assessed REASON FOR VISIT PLAN OF CARE VITAL SIGNS MEDICATIONS Unknown Medications RESULTS No Results PROCEDURES No Known procedures INSTRUCTIONS MEDICATIONS ADMINISTERED No Known Medications MEDICAL (GENERAL) HISTORY Type Description Date Medical History obesity Medical History headache symdrome Medical History psychiatric disorders depression Medical History due date 03/19/2018 Surgical History [place] [facility] Hospitalization History [facility]--Couldnt fill baby move for over an hour. Sent home 01/2018
--- OUTSIDE RECORDS SUMMARY | 2018-02-26 14:17 | XMS REPORT ---
Author Author SG SALINAS Organization [facility] Address [address] [place] [address] Care Team Providers Care Hotel Registration Clerk Name Role Phone REVAMARGEPATYSG Friend Unavailable PROBLEMS Type Condition ICD9-CM Code LWU79-CW Code Onset Dates Condition Status SNOMED Code Problem BMI 40.0-44.9, adult Z68.41 Active 915284002 Problem Nausea and vomiting during O21.9 Active 94657310 Problem Insomnia, unspecified type G47.00 Active 296522367 Problem Uterine size-date discrepancy in third trimester O26.843 Active 730913744 Problem Constipation, unspecified K59.00 Active 76725201 Problem Supervision of normal first in third trimester Z34.03 Active 40148086 Problem Heartburn R12 Active 01611078 Problem Obesity complicating , third trimester O99.213 Active 328863163581 Problem Diseases of the digestive system complicating , third trimester O99.613 Active 02458046 ALLERGIES No Information ENCOUNTERS Encounter Location Date Diagnosis [facility] [address] [facility] [id number] [place] [id number] Jan, [place] [address] [employer] [id number] [address] Jan, Supervision of normal first in third trimester Z34.03 ; Diseases of the digestive system complicating , third trimester O99.613 ; Heartburn R12 ; Obesity complicating , third trimester O99.213 ; Constipation, unspecified K59.00 ; Insomnia, unspecified type G47.00 ; Uterine size-date discrepancy in third trimester O26.843 and BMI 45.0-49.9, adult Z68.[address] [employer] [id number], [place] [address] Dec, [facility] [employer] [id number] [place] [id number] Dec, Supervision of normal first in third trimester Z34.03 ; Encounter for immunization Z23 ; Nausea and vomiting during O21.9 ; Obesity complicating , third trimester O99.213 ; Diseases of the digestive system complicating , third trimester O99.613 ; Heartburn R12 and Constipation, unspecified K59.00 [facility] [address] [id number][place] [id number] Dec, Supervision of normal first in third trimester Z34.03 ; Obesity complicating , third trimester O99.213 ; Diseases of the digestive system complicating , third trimester O99.613 ; Constipation , unspecified K59.00 ; Heartburn R12 ; Insomnia, unspecified type G47.00 ; Nausea and vomiting during O21.9 and BMI 45.0-49.9, adult Z68.42 [facility] [employer] [id number] [place] [address] November, [facility]ITALEntertainment Media WorksE [id number] [place] [address] November, Obesity complicating , third trimester O99.213 ; Supervision of normal first in third trimester Z34.03 ; Constipation, unspecified K59.00 ; Diseases of the digestive system complicating , third trimester O99.613 ; Heartburn R12 ; Nausea and vomiting during O21.9 and BMI 45.0-49.9, adult Z68.42 [employer] [id number] [place] [address] November, [employer] [id number] [place] [address] Oct, Supervision of normal first in second trimester Z34.02 ; Insomnia, unspecified type G47.00 ; Obesity complicating in second trimester O99.212 ; Heartburn R12 ; Other specified related conditions , second trimester O26.892 ; Nausea and vomiting during O21.9 and BMI 40.0-44.9, adult Z68.41 [facility] [address] [id number] [place] [address] Oct, [facility] [address] [id number], [place] [address] Oct, Dental examination Z01.20 [facility] [address] [id number], [place] [address] Sep, Supervision of normal first in second trimester Z34.02 ; Obesity complicating in second trimester O99.212 and Insomnia, unspecified type G47.00 [facility] [place] [address] [facility] [id number] [place] [address] Sep, Leukorrhea, vaginal, noninfectious N89.8 [facility] [address] [id number], [place] [address] Sep, Supervision of normal first in first trimester Z34.01 and Obesity affecting in first trimester O99.211 [facility] [address] [id number], [place] [address] Aug, Supervision of normal first in first trimester Z34.01 and Obesity affecting in first trimester O99.211 [facility] [address] [id number], [place] [address] Aug, [facility] [address] [id number], [place] [address] Aug, Supervision of normal first in first trimester Z34.01 and Obesity affecting in first trimester O99.211 [facility]MyBuilder[facility]AD[facility] [address] [id number], [place] [address] Jul, [facility] [address] [id number], [place] [address] Jul, BMI 40.0-44.9, adult Z68.41 ; Supervision of normal first in first trimester Z34.01 ; Leukorrhea, vaginal, noninfectious N89.8 and Obesity affecting in first trimester O99.211 [facility] [address]00565100[place] [address] Jul, [facility] DIXONALVARADO [address] [facility] [address] [address] [address] [id number], [place] [id number] Jun, Amenorrhea N91.2 [facility] DIXONALVARADO [address] [facility] [address] [address] [id number], [place] [id number] Jun, Strep throat J02.0 [place] [id number] [place] [id number] May, Abscess L02.91 [place] [address] [place] [id number] [place] [address] Jun, Vaginal discharge N89.8 ; Cellulitis, unspecified L03.90 ; Cutaneous abscess, unspecified L02.91 and Obesity E66.9 [place] [id number] [place] [id number] Mar, Abscess and cellulitis 682.9 [place] [address] [place] [address] [id number] Mar, Abscess and cellulitis 682.9 [place] [address] [place] [address] [id number] Feb, Deep folliculitis 704.8 and Skin candidiasis 112.3 [place] [address] [place] [id number] [place] [address]- [address] Dec, Conjunctivitis 372.30 and Environmental allergies V15.09 [place] [address] [place] [id number] [place] [address]- 1006 14 Oct, 2014 [place] [address] [place] [id number] [place] [address]- 6865 Oct, [place] [address] [place] [id number] [place] [address]- 37[address] Sep, [facility] [address] [place] [id number] [place] [address]- 7896 Sep, [place] [id number] [place] [id number] Jul, [facility] [place] [facility] [address] [id number] [place] [address] Jul, [facility] [place] [facility] [address] [id number] [place] [address] 3570 May, [facility] [place] [facility] [address] [id number] [place] [address]- 4531 May, [facility] [place] [facility] [address] [id number] [place] [address]- 2642 Apr, [facility] [place] [facility] [address] [id number] [place] [address]- 5319 Apr, [facility] [place] [facility] [address] [id number] [place] [address]- 8257 Apr, [facility] [place] [facility] [address] [id number] [place] [address]- 5634 Apr, [facility] [place] [facility] [address] [id number] [place] [address]- 4958 25 Mar, 2013 [facility] [place] [facility] [address] [id number] [place] [address]- 7273 25 Mar, 2014 [facility] [place] [facility] [address] [id number] [place] [address]- 7629 23 Mar, 2013 [facility] [place] [facility] [address] [id number] [place] [address]- 9946 23 Mar, 2013 [facility] [place] [facility] [address] [id number] [address] 97[address] 16 Sep, 2013 [facility] [place] [facility] [address] [id number] [place] [address]- 3785 16 Sep, 2013 [facility] [place] [facility] [address] [id number] [place] [address]- 4247 15 Mar, 2013 [facility] [place] [facility] [address] [id number] [place] [address]- 2555 15 Mar, 2013 [facility] [place] [facility] [address] [id number] [place] [address]- 35[address] Mar, [facility] [address] [id number] [place] [address]- 7616 Mar, [facility] [place] [address] [id number] [place] [id number] Oct, [facility] [address] [facility] [id number] [place] [address]- 2546 Oct, [facility] [place] [address] [facility] [id number] [place] [id number] Oct, [facility] [address] [id number] [place] [address]- 4756 Oct, [facility] [place] [facility] [address] [id number] [place] [address]- 5645 Aug, [facility] [place] [facility] [address] [facility] [id number] [place] [address]- 6282 Aug, [facility] [place] [facility] [address] [id number] [address]- 4[address] Mar, [facility] [place] [facility] [address] [id number] [place] [address]- 8830 November, [facility] [place] [facility] [address] [facility] [id number] [place] [address] 1617 November, [facility] [place] [facility] [address] [id number] [address]- 7520 Oct, [facility] [place] [facility] [address] [id number] [place] [address]- 8111 Oct, [facility] [place] [facility] [address] [id number] [place] [address]- 2727 Aug, [facility] [place] [facility] [address] [id number] [address] 3252 May, [facility] [place] [facility] [address] [facility] [id number] [place] [address]- 9930 May, [facility] [place] [facility] [address] [facility] [id number] [place] [address]- 8181 May, IMMUNIZATIONS No Known Immunizations SOCIAL HISTORY Never Assessed REASON FOR VISIT Lab (walk-in) [employer] PLAN OF CARE Activity Details Pending Test HIV (STATE) VITAL SIGNS MEDICATIONS Unknown Medications RESULTS No Results PROCEDURES Procedure Date Ordered Result Body Site HEPATITIS B SURFACE AG, EIA September 19, 2017 RBC ANTIBODY SCREEN September 19, 2017 HEPATITIS C AB TEST September 19, 2017 COMPLETE CBC W/AUTO DIFF WBC September 19, 2017 COMPREHEN METABOLIC PANEL September 19, 2017 BLOOD TYPING, ABO September 19, 2017 BLOOD TYPING, RH (D) September 19, 2017 ASSAY THYROID STIM HORMONE September 19, 2017 VARICELLA-ZOSTER ANTIBODY September 19, 2017 ROUTINE VENIPUNCTURE 2017-09-19 N/A RUBELLA ANTIBODY September 19, 2017 CHRMOML ANEUPLOIDY September 19, 2017 No Charge September 19, 2017 Hemoglobin Test Send Out 0 dollar September 19, 2017 INSTRUCTIONS MEDICATIONS ADMINISTERED No Known Medications MEDICAL (GENERAL) HISTORY Type Description Date Medical History obesity Medical History headache symdrome Medical History psychiatric disorders depression Medical History due date 03/19/2018 Surgical History [place] Teeth Hospitalization History [facility]--Couldnt fill baby move for over an hour. Sent home 01/2018
--- OUTSIDE RECORDS SUMMARY | 2018-02-26 14:18 | XMS REPORT ---
Author Author SG SALINAS Organization [facility] Address [address] [place] [address] Care Team Providers Care Alliances Consultant Name Role Phone REVAMARGEPATYKHARI FriendT Unavailable PROBLEMS Type Condition ICD9-CM Code ZNS12-VI Code Onset Dates Condition Status SNOMED Code Problem Insomnia, unspecified type G47.00 Active 949726614 Problem BMI 40.0-44.9, adult Z68.41 Active 641777980 Problem Constipation, unspecified K59.00 Active 00372985 Problem Obesity complicating , third trimester O99.213 Active 779950375942 Problem Nausea and vomiting during O21.9 Active 38275377 Problem Heartburn R12 Active 66164809 Problem Diseases of the digestive system complicating , third trimester O99.613 Active 92806347 Problem Supervision of normal first in third trimester Z34.03 Active 23810521 ALLERGIES No Information ENCOUNTERS Encounter Location Date Diagnosis [facility] [id number], [place] [id number] Jan, [facility] [id number], [place] [address] Dec, [facility] [id number], [place] [address] Dec, Supervision of normal first in third trimester Z34.03 ; Encounter for immunization Z23 ; Nausea and vomiting during O21.9 ; Obesity complicating , third trimester O99.213 ; Diseases of the digestive system complicating , third trimester O99.613 ; Heartburn R12 and Constipation, unspecified K59.00 [facility] [id number], [place] [address]266[address] Dec, Supervision of normal first in third trimester Z34.03 ; Obesity complicating , third trimester O99.213 ; Diseases of the digestive system complicating , third trimester O99.613 ; Constipation , unspecified K59.00 ; Heartburn R12 ; Insomnia, unspecified type G47.00 ; Nausea and vomiting during O21.9 and BMI 45.0-49.9, adult Z68.42 [facility] [address] [id number], [place] [address] November, [facility] [address] [id number], [place] [address] November, Obesity complicating , third trimester O99.213 ; Supervision of normal first in third trimester Z34.03 ; Constipation, unspecified K59.00 ; Diseases of the digestive system complicating , third trimester O99.613 ; Heartburn R12 ; Nausea and vomiting during O21.9 and BMI 45.0-49.9, adult Z68.42 [facility] ALVAR[employer]O [address] [place] [address] AVE [id number], [place] [id number] November, [facility] [address] [id number], [place] [id number] Oct, Supervision of normal first in second trimester Z34.02 ; Insomnia, unspecified type G47.00 ; Obesity complicating in second trimester O99.212 ; Heartburn R12 ; Other specified related conditions , second trimester O26.892 ; Nausea and vomiting during O21.9 and BMI 40.0-44.9, adult Z68.41 [facility] [address] [facility] [id number] [place] [id number] Oct, [facility] AL[address] [id number], [place] [id number] Oct, Dental examination Z01.20 [facility] [address] [id number], [place] [address] Sep, Supervision of normal first in second trimester Z34.02 ; Obesity complicating in second trimester O99.212 and Insomnia, unspecified type G47.[address] [facility] [id number] SPRINGS[place] [address] Sep, Leukorrhea, vaginal, noninfectious N89.8 [facility] [address] [id number], [place] [address] Sep, Supervision of normal first in first trimester Z34.01 and Obesity affecting in first trimester O99.211 [facility] [address] [id number], [place] [id number] Aug, Supervision of normal first in first trimester Z34.01 and Obesity affecting in first trimester O99.211 [facility] [address] [id number], [place] [address] Aug, [facility] [address] [id number], [place] 307115742 Aug, Supervision of normal first in first trimester Z34.01 and Obesity affecting in first trimester O99.211 [facility] [address] [id number], [place] [id number] Jul, [facility] [address] [id number], [place] [address] Jul, BMI 40.0-44.9, adult Z68.41 ; Supervision of normal first in first trimester Z34.01 ; Leukorrhea, vaginal, noninfectious N89.8 and Obesity affecting in first trimester O99.211 [facility] [address] [place] [id number] [address]- 6[address] Jul, [facility] [address] [id number], [place] [id number] Jun, Amenorrhea N91.[address] [facility] [address] [id number], [place] [id number] Jun, Strep throat J02.[address] [facility] [place] [address] [facility] [id number] SPR[place] [address] May, Abscess L02.91 [facility] [address] [place] [address]- 2546 Jun, Vaginal discharge N89.8 ; Cellulitis, unspecified L03.90 ; Cutaneous abscess, unspecified L02.91 and Obesity E66.9 [place] [id number] [place] [address] [id number] Mar, Abscess and cellulitis 682.9 [place] [id number] [place] [address] [id number] Mar, Abscess and cellulitis 682.9 [place] [id number] [place] [address] [id number] Feb, Deep folliculitis 704.8 and Skin candidiasis 112.3 [facility] [address] [address]- 3736 Dec, Conjunctivitis 372.30 and Environmental allergies V15.09 [facility] [address] [address]- 5686 Oct, [facility] [address] [address]- 6291 Oct, [facility] [address] [id number] [place] [address]478- 5211 Sep, [facility] [address] [place] [id number] [place] [address] 87816487- 3024 Sep, [address] [place] [address] [id number] Jul, [facility] [address] [place] [id number] [place] [address] 94713- 1879 Jul, [facility] [address] [place] [address] [id number] [place] [address]17- 3176 May, [facility] [address] [address]- 8636 May, [facility] [address] [place] [id number] [place] [address]191- 2546 Apr, [facility] [address] [place] [address]- 7818 08 Apr, 2014 [facility] [place] [facility] [address] [id number] [place] [address]- 1157 07 Apr, 2014 [facility] [place] [facility] [address] [id number] [place] [address]- 3606 07 Apr, 2014 [facility] [place] [facility] [address] [id number] [place] [address]- 2071 25 Mar, 2013 [facility] [place] [facility] [address] [id number] [place] [address]- 2383 25 Mar, 2013 [facility] [place] [facility] [address] [id number] [place] [address]- 6256 23 Mar, 2013 [facility] [place] [facility] [address] [id number] [place] [address]- 7517 23 Mar, 2013 [facility] [place] [facility] [address] [id number] [place] [address]- 8556 16 Mar, 2013 [facility] [place] [facility] [address] [id number] [place] [address]- 2549 16 Mar, 2013 [facility] [place] [facility] [address] [id number] [place] [address]- 4971 15 Mar, 2013 [facility] [place] [facility] [address] [id number], [place] [address]- 8744 15 Mar, 2013 [facility] [place] [facility] [address] [id number] [address]- 0562 09 Mar, 2013 [facility] [place] [facility] [address] [id number], [place] [address]- 2549 09 Mar, 2013 [facility] [address] [id number] SPRINGS[place] 825682558 Oct, [facility] [place] [facility] [address] [id number], [place] [address]- 7966 Oct, [facility] [address] [id number] [place] [id number] Oct, [facility] [place] [facility] [address]00565100[place] [address]- 7044 Oct, [facility] [address]00565100[place], [place] [address]- 4177 Aug, [facility] [address]00565100[place], [place] [address]- 0152 Aug, [facility] [address]00565100[place], [place] 877038- 1177 Mar, [facility] [address]00565100[place] [address]- 8800 November, [facility] [address] [place] [address] 403333- 0928 November, [facility] [address]00565100[place] [address]- 4258 Oct, [facility] [address] [place] [address] 734571- 3838 Oct, [facility] [address]00565100[place] [address]- 5627 Aug, [facility] [address]00565100[place] [address]- 6344 May, [facility] [address]00565100[place] [address]- 0981 May, [facility] [address]65100[place], [place] [address]23[address]- 8816 May, IMMUNIZATIONS No Known Immunizations SOCIAL HISTORY Never Assessed REASON FOR VISIT request return call PLAN OF CARE VITAL SIGNS MEDICATIONS Unknown Medications RESULTS No Results PROCEDURES No Known procedures INSTRUCTIONS MEDICATIONS ADMINISTERED No Known Medications MEDICAL (GENERAL) HISTORY Type Description Date Medical History obesity Medical History headache symdrome Medical History psychiatric disorders depression Medical History due date 03/19/2018 Surgical History [place] [facility]
--- OUTSIDE RECORDS SUMMARY | 2018-02-26 14:18 | XMS REPORT ---
Author Author SG SALINAS Organization [facility] Address [address] [place] [address] Care Team Providers Care Pediatric Speech Language Pathologist Name Role Phone REVAMARGEPATYKHARI FriendT Unavailable PROBLEMS Type Condition ICD9-CM Code NWM80-LT Code Onset Dates Condition Status SNOMED Code Problem Insomnia, unspecified type G47.00 Active 239333660 Problem BMI 40.0-44.9, adult Z68.41 Active 832599862 Problem Constipation, unspecified K59.00 Active 14881386 Problem Obesity complicating , third trimester O99.213 Active 934553096796 Problem Nausea and vomiting during O21.9 Active 04829357 Problem Heartburn R12 Active 63275745 Problem Diseases of the digestive system complicating , third trimester O99.613 Active 58346787 Problem Supervision of normal first in third trimester Z34.03 Active 76950738 ALLERGIES Substance Reaction Event Type Date Status Penicillin V Potassium hives Drug Allergy Jul, Active ENCOUNTERS Encounter Location Date Diagnosis [facility] Technologies[facility] opinions.hE [id number], [place] [id number] Dec, [facility] [id number], [place] [id number] Dec, Supervision of normal first in third trimester Z34.03 ; Obesity complicating , third trimester O99.213 ; Diseases of the digestive system complicating , third trimester O99.613 ; Constipation , unspecified K59.00 ; Heartburn R12 ; Insomnia, unspecified type G47.00 ; Nausea and vomiting during O21.9 and BMI 45.0-49.9, adult Z68.42 [facility] [id number], [place] [address] November, [facility] [id number] [place] [id number] November, Obesity complicating , third trimester O99.213 ; Supervision of normal first in third trimester Z34.03 ; Constipation, unspecified K59.00 ; Diseases of the digestive system complicating , third trimester O99.613 ; Heartburn R12 ; Nausea and vomiting during O21.9 and BMI 45.0-49.9, adult Z68.42 [facility] [address] [id number], [place] [id number] November, [facility] [address] [place] [address] AVE [id number], [place] [phone] Oct, Supervision of normal first in second trimester Z34.02 ; Insomnia, unspecified type G47.00 ; Obesity complicating in second trimester O99.212 ; Heartburn R12 ; Other specified related conditions , second trimester O26.892 ; Nausea and vomiting during O21.9 and BMI 40.0-44.9, adult Z68.41 [facility] [place] [facility] [address] [id number], [place] [id number] Oct, [facility] [address] [place] [address] AVE [id number], [place] [id number] Oct, Dental examination Z01.20 [facility] [address] [id number], [place] [address] Sep, Supervision of normal first in second trimester Z34.02 ; Obesity complicating in second trimester O99.212 and Insomnia, unspecified type G47.00 [facility] [place] [address] [id number], [place] [id number] Sep, Leukorrhea, vaginal, noninfectious N89.8 [facility] [address] [id number], [place] [id number] Sep, Supervision of normal first in first trimester Z34.01 and Obesity affecting in first trimester O99.211 [facility] [address] [id number], [place] [address] Aug, Supervision of normal first in first trimester Z34.01 and Obesity affecting in first trimester O99.211 [facility] [address] [id number], [place] [id number] Aug, [address] [id number], [place] [id number] Aug, Supervision of normal first in first trimester Z34.01 and Obesity affecting in first trimester O99.211 [facility] [address] [id number], [place] [id number] Jul, [facility] [address] [address] [id number], [place] [phone] Jul, BMI 40.0-44.9, adult Z68.41 ; Supervision of normal first in first trimester Z34.01 ; Leukorrhea, vaginal, noninfectious N89.8 and Obesity affecting in first trimester O99.211 [facility] [place] [address]00565100[place], [place] [address] Jul, [facility] AV [id number], [place] [phone] Jun, Amenorrhea N91.2 [facility]ner [facility] [id number], [place] [phone] Jun, Strep throat J02.0 [facility] [address] [id number], [place] [id number] May, Abscess L02.91 [facility] [address]00565100[place], [place] [address] 2546 Jun, Vaginal discharge N89.8 ; Cellulitis, unspecified L03.90 ; Cutaneous abscess, unspecified L02.91 and Obesity E66.9 [facility] [id number] [place] [id number] Mar, Abscess and cellulitis 682.[address] [place] [id number] Mar, Abscess and cellulitis 682.9 [place] [id number], [place] [address] Feb, Deep folliculitis 704.8 and Skin candidiasis 112.3 [facility] [id number] [place] [address] Dec, Conjunctivitis 372.30 and Environmental allergies V15.09 [facility] [id number] [place] [address]- 6886 Oct, [facility] [id number] [place] [address]- 8766 Oct, [facility] [id number] [place] [address]- 7056 Sep, [facility] [id number] [place] [address]88- 7826 Sep, [facility] [place] [id number] [place] [id number] Jul, [facility] [id number] [place] [address]- 7296 Jul, [facility] [id number] [place] [address] 94[address]- 6936 May, [facility] [address] [id number], [place] [address] 2546 May, [facility] [address]00565100[place], [place] [address] Apr, [facility] [address] [id number], [place] [address]- 2546 Apr, [facility] [id number] [place] [address]8517- 6316 Apr, [facility] [id number] [place] [address]- 2546 Apr, [facility] [place] [address]00565100[place], [place] [address] 25[address] Mar, [facility] [place] [facility] [address] [id number] [place] [address] 25 Mar, 2013 [facility] [place] [facility] [address] [id number] [place] [address]- 4[address] 23 Mar, 2013 [facility] [place] [facility] [address] [id number] [place] [address] 2546 23 Mar, 2013 [facility] [place] [facility] [address] [id number] [place] [address] 2546 16 Mar, 2013 [facility] [place] [facility] [address] [id number] [place] [address] 2542 16 Mar, 2013 [facility] [place] [facility] [address] [id number] [place] [address]- 1579 15 Mar, 2014 [facility] [place] [facility] [address] [facility] [id number] [place] [address]- 1696 15 Mar, 2014 [facility] [place] [facility] [address] [facility] [id number] [place] [address]- 1775 09 Mar, 2014 [facility] [place] [facility] [address] [id number] [place] [address]- 7860 09 Mar, 2014 [facility] [place] [address] [id number], [place] [id number] Oct, [facility] [place] [facility] [address] [facility] [id number], [place] [address] Oct, [facility] [place] [address] [facility] [id number], [place] [id number] Oct, [facility] [place] [facility] [address] [id number], [place] [address]- 359[address] Oct, [facility] [place] [facility] [address] [id number], [place] [address] Aug, [facility] [place] [facility] [address] [id number] [place] [address]- 3881 Aug, [facility] [place] [facility] [address] [id number], [place] [address] Mar, [facility] [address] [id number], [place] [address] November, [facility] [address]00565100[place], [place] [address]- [address] November, [facility] [address]00565100[place], [place] [address] Oct, [facility] [address]00565100[place], [place] [address] Oct, [facility] [address]00565100[place], [place] [address]- 94[address] Aug, [facility] [address]00565100[place], [place] [address] May, [facility] [address]00565100[place], [place] [address] May, [facility] [address]00565100[place], [place] [address] May, IMMUNIZATIONS No Known Immunizations SOCIAL HISTORY Never Assessed REASON FOR VISIT OB Flowsheet History-ADaviedRN PLAN OF CARE VITAL SIGNS MEDICATIONS Medication Instructions Dosage Frequency Start Date End Date Duration Status Hydrocodone-Acetaminophen 5-325 MG Orally every 6 hrs 1 tablet as needed 6h Not-Taking Ultram 50 MG Orally every 6 hrs 1 tablet as needed 6h Mar, Not-Taking Naprosyn 500 MG Orally every 12 hrs 1 tablet 12h Mar, Not- Taking RESULTS No Results PROCEDURES No Known procedures INSTRUCTIONS MEDICATIONS ADMINISTERED No Known Medications MEDICAL (GENERAL) HISTORY Type Description Date Medical History obesity Medical History headache symdrome Medical History psychiatric disorders depression Medical History due date 03/19/2018 Surgical History [place] Teeth
--- OUTSIDE RECORDS SUMMARY | 2018-02-26 14:18 | XMS REPORT ---
Author Author ANNALISA HOLLINGSWORTH [facility] Address [address] [place] [address] Care Team Providers Care Maturity Checker Name Role Phone ANNALISA HOLLINGSWORTH Unavailable PROBLEMS Type Condition ICD9-CM Code LLW74-XR Code Onset Dates Condition Status SNOMED Code Problem Obesity complicating in second trimester O99.212 Active 785920536590 Problem Heartburn R12 Active 09885362 Problem Insomnia, unspecified type G47.00 Active 836492842 Problem BMI 40.0-44.9, adult Z68.41 Active 421574737 Problem Supervision of normal first in second trimester Z34.02 Active 60229777 Problem Obesity complicating , third trimester O99.213 Active 458172693611 Problem Diseases of the digestive system complicating , third trimester O99.613 Active 96582047 Problem Other specified related conditions, second trimester O26.892 Active 39216067 Problem Nausea and vomiting during O21.9 Active 53921383 Problem Constipation, unspecified K59.00 Active 48150082 Problem Supervision of normal first in third trimester Z34.03 Active 20128034 ALLERGIES Substance Reaction Event Type Date Status Penicillin V Potassium hives Drug Allergy Jun, Active ENCOUNTERS Encounter Location Date Diagnosis [facility] [address] [id number], [place] [id number] Dec, [facility] [id number], [place] [id number] November, [address] [id number], [place] [address] November, Obesity complicating , third trimester O99.213 ; Supervision of normal first in third trimester Z34.03 ; Constipation, unspecified K59.00 ; Diseases of the digestive system complicating , third trimester O99.613 ; Heartburn R12 ; Nausea and vomiting during O21.9 and BMI 45.0-49.9, adult Z68.42 [facility] [address] [id number], [place] [id number] November, [facility] [address] [id number], [place] [address] Oct, Supervision of normal first in second trimester Z34.02 ; Insomnia, unspecified type G47.00 ; Obesity complicating in second trimester O99.212 ; Heartburn R12 ; Other specified related conditions , second trimester O26.892 ; Nausea and vomiting during O21.9 and BMI 40.0-44.9, adult Z68.41 [facility] [address] [id number] HEIGHTS[place] [id number] Oct, [facility] [address] [id number], [place] [id number] Oct, Dental examination Z01.20 [facility] 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 [address] [id number], [place] [address] Sep, Supervision of normal first in second trimester Z34.02 ; Obesity complicating in second trimester O99.212 and Insomnia, unspecified type G47.00 [facility] [place] [address] [id number], [place] [address] Sep, Leukorrhea, vaginal, noninfectious N89.8 [facility] [address] [id number], [place] [id number] Sep, Supervision of normal first in first trimester Z34.01 and Obesity affecting in first trimester O99.211 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 [address] [id number], [place] [address] Aug, Supervision of normal first in first trimester Z34.01 and Obesity affecting in first trimester O99.211 [facility] [address] [id number], [place] 360[address] Aug, [facility] 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LISA [address] [id number], [place] [address] Aug, Supervision of normal first in first trimester Z34.01 and Obesity affecting in first trimester O99.211 [facility] [address] [facility] [address] [id number], [place] [address] Jul, [facility] [address] [id number], [place] [address]69[address] Jul, BMI 40.0-44.9, adult Z68.41 ; Supervision of normal first in first trimester Z34.01 ; Leukorrhea, vaginal, noninfectious N89.8 and Obesity affecting in first trimester O99.211 [address] [id number] [place] [address] 22422- 2546 Jul, [facility] [address] [address] [id number], [place] [address] Jun, Amenorrhea N91.2 [facility] [address] [place] [address] AVE [id number], [place] [id number] Jun, Strep throat J02.0 [address] [place] [address] [id number] May, Abscess L02.91 [address] [address] [place] [address] 2546 Jun, Vaginal discharge N89.8 ; Cellulitis, unspecified L03.90 ; Cutaneous abscess, unspecified L02.91 and Obesity E66.9 [address] [place] [address] [id number] Mar, Abscess and cellulitis 682.9 [address] [place] [address] [id number] Mar, Abscess and cellulitis 682.9 [address] [place] [address] [id number] Feb, Deep folliculitis 704.8 and Skin candidiasis 112.3 [place] [id number] [place] [address]33- 5401 Dec, Conjunctivitis 372.30 and Environmental allergies V15.09 [facility] [address] [facility] [id number] [address]- 5520 Oct, [facility] [address] [facility] [id number] [place] [address]- 1626 Oct, [facility] [address] [facility] [id number] [place] [address]- 3015 Sep, [facility] [address] [facility] [id number] [address]- 2913 Sep, [facility] [address] [id number], [place] [id number] Jul, [facility] [address] [facility] [id number] [place] [address]- 1300 Jul, [facility] [address] [id number] [address]- 9619 May, [facility] [address] [id number] [address]- 1899 May, [facility] [address] [id number]56[place]- 2419 Apr, [facility] [address] [id number]35[place]- 8872 Apr, [facility] [address] [id number] [address]- 6685 Apr, [facility] [address] [facility] [id number] [address]- 8446 Apr, [facility] [place] [facility] [address] [facility] [id number] [place]IGHT[place], [place] 9839[place]- 3192 Mar, [facility] [place] [facility] [address] [facility] [id number] [place] [address]- 4266 Mar, [facility] [place] [facility] [address] [facility] [id number] [place] [address]- 6558 Mar, [facility] [place] [facility] [address] [facility] [id number] [place] [address]- 1852 23 Mar, 2014 [facility] [place] [facility] [address] [id number] [place]- 3387 16 Mar, 2014 [facility] [place] [facility] [address] [id number] [place] [address]- 1037 16 Mar, 2014 [facility] [place] [facility] [address] [id number] [place] [address]- 7941 Mar, [facility] [place] [facility] [address] [id number] [place] [address]- 3680 15 Mar, 2014 [facility] [place] [facility] [address] [id number] [place] [address]- 6108 Mar, [facility] [place] [facility] [address] [facility] [id number] [place] [address]- 2788 Mar, [facility] [place] [id number], [place] [id number] Oct, [facility] [place] [facility] [address] [id number] [place] [address]- 7746 Oct, [facility] [place] [address] [facility] [id number], [place] [id number] Oct, [facility] [place] [facility] [address] [id number] [address]- 8879 Oct, [facility] [place] [facility] [address] [id number] [address]- 4005 Aug, [facility] [place] [facility] [address] [id number] [address]- 5012 Aug, [facility] [place] [facility] [address] [id number] [address]- 4986 Mar, [facility] [place] [facility] [address] [id number] [address]- 7111 November, [facility] [place] [facility] [address] [id number] [address]- 7696 November, [facility] [place] [facility] [address] [facility] [id number] [place] [address]- 5393 Oct, [facility] [address] [facility] [id number] [place] [address]- 2227 Oct, [facility] [address] [id number] [address]- 4637 Aug, [facility] [address] [id number] [address]- 1812 May, [facility] [address] [id number] [address]- 2945 May, [facility] [address]65100[place] [address]- 2028 May, IMMUNIZATIONS No Known Immunizations SOCIAL HISTORY Never Assessed REASON FOR VISIT Sore throat X3 days. 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 PLAN OF CARE Activity Details Follow Up prn Reason: VITAL SIGNS Height 66 in 2017-06-21 Weight 259.1 lbs 2017-06-21 Temperature 100.5 degrees Fahrenheit 2017-06-21 Heart Rate 98 bpm 2017-06-21 Respiratory Rate 17 2017-06-21 BMI 41.82 kg/m2 2017-06-21 Blood pressure systolic 132 mmHg 2017-06-21 Blood pressure diastolic 90 mmHg 2017-06-21 MEDICATIONS Medication Instructions Dosage Frequency Start Date End Date Duration Status Ultram 50 MG Orally every 6 hrs 1 tablet as needed 6h Mar, Not-Taking Zithromax Z-Raymond 250 MG Orally Once a day 2 tablets on the first day, then 1 tablet daily for 4 days 24h Jun, Jun, 5 day(s) Active Hydrocodone-Acetaminophen 5-325 MG Orally every 6 hrs 1 tablet as needed 6h Not-Taking Naprosyn 500 MG Orally every 12 hrs 1 tablet 12h Mar, Not- Taking RESULTS Name Result Date Reference Range STREP A (IN HOUSE) 2017-06-21 STREP A pos Control pos Lot # [id number] Exp date 02/12/19 PROCEDURES Procedure Date Ordered Result Body Site STREP A ASSAY W/OPTIC Jun 21, 2017 INSTRUCTIONS MEDICATIONS ADMINISTERED No Known Medications MEDICAL (GENERAL) HISTORY Type Description Date Medical History obesity Medical History headache symdrome Medical History psychiatric disorders depression Medical History due date 03/19/2018 Surgical History [place] Teeth
--- OUTSIDE RECORDS SUMMARY | 2018-02-26 14:18 | XMS REPORT ---
Author Author SAYRA HUTCHISON [facility] eClinicalWorks Address Unknown Phone Unavailable Care Team Providers Care Vacuum Cleaner Mechanic Name Role Phone SAYRA HUTCHISON CP Unavailable Allergies, Adverse Reactions, Alerts Substance Reaction Event Type Penicillin V Potassium hives Drug Allergy Problems Problem Type Condition ICD-9 Code Onset Dates Condition Status Problem Contact dermatitis and other eczema, due to unspecified cause 692.9 Active Problem Acute upper respiratory infections of unspecified site 465.9 Active Problem Contusion of unspecified site 924.9 Active Problem Nausea with vomiting 787.01 Active Problem 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 Problem Pain in joint, ankle and foot 719.47 Active Problem Cough 786.2 Active Problem Screening examination for pulmonary tuberculosis V74.1 Active Problem Other acute sinusitis 461.8 Active Problem Other diseases of nasal cavity and sinuses 478.19 Active Assessment Abscess and cellulitis 682.9 Active Problem Scabies 133.0 Active Problem Intestinal infection due to other organism, NEC 008.8 Active Problem Dizziness and giddiness 780.4 Active Medications Medication Code System Code Instructions Start Date End Date Status Dosage Bactrim DS [facility] [address]-12 800-160 MG Orally Once a day Mar 23, 2015 Apr 02, 2015 1 tablet Ultram [facility] [address]-21 50 MG Orally every 6 hrs Mar 23, 2015 1 tablet as needed Naprosyn [facility] [address]-49 500 MG Orally every 12 hrs Mar 23, 2015 1 tablet Procedures Procedure Coding System Code Date Office Visit, Est Pt., Level 3 CPT-4 13915 Mar 25, 2015 Vital Signs Date/Time: Mar 25, 2015 Temperature 98.3 F Weight 270.6 lbs Height 66 in BMI 43.67 Index Blood Pressure Diastolic 72 mmHg Blood Pressure Systolic 110 mmHg Cardiac Monitoring Heart Rate 86 bpm BMIPercentile 98.85 % Wt Percentile 99.61 % Results No Known Results Summary Purpose eClinicalWorks Submission
--- OUTSIDE RECORDS SUMMARY | 2018-02-26 14:18 | XMS REPORT ---
Author Author SG SALINAS Organization [facility] Address [address] [place] [address] Care Team Providers Care Internal Combustion Engine Inspector Name Role Phone SG SALINAS Unavailable PROBLEMS Type Condition ICD9-CM Code [id number] Code Onset Dates Condition Status SNOMED Code Problem BMI 40.0-44.9, adult Z68.41 Active 117774123 Problem Nausea and vomiting during O21.9 Active 25490302 Problem Insomnia, unspecified type G47.00 Active 035911053 Problem Uterine size-date discrepancy in third trimester O26.843 Active 857791305 Problem Constipation, unspecified K59.00 Active 28494045 Problem Supervision of normal first in third trimester Z34.03 Active 49022262 Problem Heartburn R12 Active 75618469 Problem Obesity complicating , third trimester O99.213 Active 930255937899 Problem Diseases of the digestive system complicating , third trimester O99.613 Active 85017997 ALLERGIES Substance Reaction Event Type Date Status Penicillin V Potassium hives Drug Allergy Aug, Active ENCOUNTERS Encounter Location Date Diagnosis [facility] [address] [facility] [id number] [id number] Jan, [place] [address] [address] [id number] [place] [address] Jan, Supervision of normal first in third trimester Z34.03 ; Diseases of the digestive system complicating , third trimester O99.613 ; Heartburn R12 ; Obesity complicating , third trimester O99.213 ; Constipation, unspecified K59.00 ; Insomnia, unspecified type G47.00 ; Uterine size-date discrepancy in third trimester O26.843 and BMI 45.0-49.9, adult Z68.42 [facility] [employer] [id number] [place]ILL[place] [phone] Dec, [address] [id number] [place] [id number] Dec, Supervision of normal first in third trimester Z34.03 ; Encounter for immunization Z23 ; Nausea and vomiting during O21.9 ; Obesity complicating , third trimester O99.213 ; Diseases of the digestive system complicating , third trimester O99.613 ; Heartburn R12 and Constipation, unspecified K59.00 [facility] [address] [address] [id number] [place] [address] Dec, Supervision of normal first in third trimester Z34.03 ; Obesity complicating , third trimester O99.213 ; Diseases of the digestive system complicating , third trimester O99.613 ; Constipation , unspecified K59.00 ; Heartburn R12 ; Insomnia, unspecified type G47.00 ; Nausea and vomiting during O21.9 and BMI 45.0-49.9, adult Z68.42 [facility] [employer] [id number] [place] [id number] November, [employer] [id number] [place] [id number] November, Obesity complicating , third trimester O99.213 ; Supervision of normal first in third trimester Z34.03 ; Constipation, unspecified K59.00 ; Diseases of the digestive system complicating , third trimester O99.613 ; Heartburn R12 ; Nausea and vomiting during O21.9 and BMI 45.0-49.9, adult Z68.[address] [id number] [place] [id number] November, [employer] [id number] [place] [address] Oct, Supervision of normal first in second trimester Z34.02 ; Insomnia, unspecified type G47.00 ; Obesity complicating in second trimester O99.212 ; Heartburn R12 ; Other specified related conditions , second trimester O26.892 ; Nausea and vomiting during O21.9 and BMI 40.0-44.9, adult Z68.41 [facility] [address] [id number] [place] [id number] Oct, [facility] [address] [id number] HILL[place] [id number] Oct, Dental examination Z01.20 [facility] [address] [id number] [place]ILL[place] [address] Sep, Supervision of normal first in second trimester Z34.02 ; Obesity complicating in second trimester O99.212 and Insomnia, unspecified type G47.00 [facility] [address] [facility] [id number][place] [id number] Sep, Leukorrhea, vaginal, noninfectious N89.8 [facility] [address] [id number] [place]ILL[place] [address] Sep, Supervision of normal first in first trimester Z34.01 and Obesity affecting in first trimester O99.211 [facility] [address] [id number] [place] [id number] Aug, Supervision of normal first in first trimester Z34.01 and Obesity affecting in first trimester O99.211 [facility] [address] [employer] [id number] [place]ILL[place] [address] Aug, [facility] ALVARADO [employer] [place] [address] AVE [id number] [place]ILL, [place] [address] Aug, Supervision of normal first in first trimester Z34.01 and Obesity affecting in first trimester O99.211 [facility] [address] [id number] HILL, [place] [id number] Jul, [facility] LIMAMyfac[facility]ageAL[facility] [employer] [address] [id number] HILL, [place] [address] Jul, BMI 40.0-44.9, adult Z68.41 ; Supervision of normal first in first trimester Z34.01 ; Leukorrhea, vaginal, noninfectious N89.8 and Obesity affecting in first trimester O99.211 [facility] [address]00565100[place], [place] [address] Jul, [facility] LIMAHumera DIXONALVARADO [address] [facility] [id number] HILL[place] [address] Jun, Amenorrhea N91.2 [facility] LIMAHumera DIXONALVARADO [address] [facility] [id number] HILL, [place] [address] Jun, Strep throat J02.0 [place] [id number] [place] [id number] May, Abscess L02.91 [place] [address] [address] [id number] [place] [address] Jun, Vaginal discharge N89.8 ; Cellulitis, unspecified L03.90 ; Cutaneous abscess, unspecified L02.91 and Obesity E66.9 [place] [id number] [place] [id number] Mar, Abscess and cellulitis 682.9 [place] [id number] [place] [address] [id number] Mar, Abscess and cellulitis 682.9 [place] [id number] [place] [id number] Feb, Deep folliculitis 704.8 and Skin candidiasis 112.3 [place] [address]00565100[place], [place] [address] Dec, Conjunctivitis 372.30 and Environmental allergies V15.09 [place] [address] [address] [id number] [place] [address] 14 Oct, 2014 [place] [address] [address] [id number] [place] [address] Oct, [place] [address] [address] [id number] [place] [address] Sep, [facility] [address] [place] [address] [id number] [place] [id number] Sep, [address] [place] [id number] 08 Jul, 2014 [facility] [place] [facility] [address] [facility] [id number] [place] [address] 08 Jul, 2014 [facility] [place] [facility] [address] [facility] [id number] [place] [address] May, [facility] [place] [facility] [address] [facility] [id number] [place] [address]- [address] May, [facility] [place] [facility] [address] [facility] [id number] [place] [address]- [address] Apr, [facility] [place] [facility] [address] [facility] [id number] [place] [address]- 96[address] Apr, [facility] [place] [facility] [address] [facility] [id number] [place] [address]- 0[address] Apr, [facility] [place] [facility] [address] [id number] [address]- [address] Apr, [facility] [place] [facility] [address] [facility] [id number], [place] [address]- [address] 25 Mar, 2013 [facility] [place] [facility] [address] [id number] [address]- [address] 25 Mar, 2013 [facility] [place] [facility] [address] [id number] [address]- [address] 23 Mar, 2013 [facility] [place] [facility] [address] [facility] [id number] [place] [address]- 14[address] 23 Mar, 2013 [facility] [place] [facility] [address] [facility] [id number], [place] [address] 16 Sep, 2013 [facility] [place] [facility] [address] [facility] [id number], [place] [address] 16 Mar, 2013 [facility] [place] [facility] [address] [facility] [id number], [place] [address] 15 Mar, 2013 [facility] [place] [facility] [address] [facility] [id number], [place] [address]- 64[address] 15 Mar2013 [facility] [place] [facility] [address] [id number] [place] [address]- 2546 Mar, [facility] [address] [id number] [place] [address]- 25[address] Mar, [facility] [address] [id number] [place] [id number] Oct, [facility] [address] [id number] [place] [address]- [address] Oct, [facility] [address] [id number] [place] [id number] Oct, [facility] [address] [id number] [place] [address]- [address] Oct, [facility] [place] [facility] [address] [id number] [place] [address]- 7[address] Aug, [facility] [address] [id number] [place] [address]- 1276 Aug, [facility] [address] [id number] [place] [address]- 1455 Mar, [facility] [place] [facility] [address] [id number] [place] [address]- [address] November, [facility] [address] [id number] [place] [address]- 1047 November, [facility] [place] [facility] [address] [id number] [place] [address]- 1466 Oct, [facility] [place] [facility] [address] [id number] [place] [address]- 2546 Oct, [facility] [place] [facility] [address] [id number] [place] [address]- 8326 Aug, [facility] [place] [facility] [address] [id number] [place] [address]- 2546 May, [facility] [place] [facility] [address] [id number] [place] [address]- 6[address] May, [facility] [address] [facility] [id number] [place] [address] May, IMMUNIZATIONS No Known Immunizations SOCIAL HISTORY Never Assessed REASON FOR VISIT OB f/u Althea PIMENTELN PLAN OF CARE Activity Details Follow Up 4 Weeks Reason: Pending Test GC/CHLAM PROBE (STATE) Pending Test UA OB DIP (IN HOUSE) Pending Test PAP REFLEX TO HPV IF ASCUS VITAL SIGNS Height 66 in 2017-09-02 Weight 265.5 lbs 2017-09-02 Temperature 99.4 degrees Fahrenheit 2017-09-02 Heart Rate 97 bpm 2017-09-02 Respiratory Rate 18 2017-09-02 BMI 42.853 kg/m2 2017-09-02 Blood pressure systolic 118 mmHg 2017-09-02 Blood pressure diastolic 66 mmHg 2017-09-02 MEDICATIONS Medication Instructions Dosage Frequency Start Date End Date Duration Status 1 Active RESULTS No Results PROCEDURES Procedure Date Ordered Result Body Site SPECIMEN HANDLING Sep 02, 2017 TRICHOMONAS ASSAY W/OPTIC Sep 02, 2017 URINE-NO MICRO Sep 02, 2017 No Charge Sep 02, 2017 CULTURE, BACTERIA, OTHER Sep 02, 2017 URINE CULTURE/COLONY COUNT Sep 02, 2017 DRUG TEST PRSMV DIR OPT OBS Sep 02, 2017 INSTRUCTIONS MEDICATIONS ADMINISTERED No Known Medications MEDICAL (GENERAL) HISTORY Type Description Date Medical History obesity Medical History headache symdrome Medical History psychiatric disorders depression Medical History due date 03/19/2018 Surgical History [facility] Hospitalization History [facility]--Couldnt fill baby move for over an hour. Sent home 01/2018
--- OUTSIDE RECORDS SUMMARY | 2018-02-26 14:19 | XMS REPORT ---
Author ALPHONSO Ellis [facility] eClinicalWorks Address Unknown Phone Unavailable Care Team Providers Care Histopath Tech Name Role Phone ALPHONSO DELEON CP Unavailable Allergies, Adverse Reactions, Alerts Substance Reaction Event Type Penicillin V Potassium hives Drug Allergy Problems Problem Type Condition Code Onset Dates Condition Status Problem Contact [...] nasal cavity and sinuses 478.19 Active Assessment Obesity E66.9 Active Assessment Vaginal discharge N89.8 Active Problem Scabies 133.0 Active Assessment Cutaneous abscess, unspecified L02.91 Active Problem Intestinal infection due to other organism, NEC 008.8 Active Assessment Cellulitis, unspecified L03.90 Active Problem Dizziness and giddiness 780.4 Active Medications Medication Code System Code Instructions Start Date End Date Status Dosage Sulfamethoxazole-Trimethoprim [facility] [address]-92 800-160 MG Orally Twice a day Jul 21, 2015 Jul 31, 2015 1 tablet Hydrocodone-Acetaminophen [facility] [address]-34 5-325 MG Orally every 6 hrs 1 tablet as needed Procedures Procedure Coding System Code Date VENIPUNCT, ROUTINE* CPT-4 45647 Jul 21, 2015 Office Visit, Est Pt., Level 4 CPT-4 10181 Jul 21, 2015 DRUG SCREEN NON TLC DEVICES CPT-4 02036 Jul 21, 2015 SPECIMEN HANDLING CPT-4 69735 Jul 21, 2015 URINALYSIS, AUTO, W/O SCOPE CPT-4 85480 Jul 21, 2015 TRICHOMONAS ASSAY W/OPTIC CPT-4 14810 Jul 21, 2015 ASSAY THYROID STIM HORMONE CPT-4 38412 Jul 21, 2015 No Charge CPT-4 97726 Jul 21, 2015 COMPLETE CBC W/AUTO DIFF WBC CPT-4 87772 Jul 21, 2015 CULTURE, BACTERIA, OTHER CPT-4 53086 Jul 21, 2015 LIPID PANEL CPT-4 35550 Jul 21, 2015 COMPREHEN METABOLIC PANEL CPT-4 95680 Jul 21, 2015 Vital Signs Date/Time: Jul 21, 2015 Temperature 97.9 F Weight 270.0 lbs Height 66 in BMI 43.57 Index Blood Pressure Diastolic 80 mmHg Blood Pressure Systolic 100 mmHg Cardiac Monitoring Heart Rate 96 bpm BMIPercentile 98.77 % Wt Percentile 99.63 % Results Name Result Date Reference Range Unit Abnormality Flag UA LONG DIP (IN HOUSE) ----pH 6.0 20150721 ----BLO Negative 20150721 ----Clarity Clear 20150721 ----Color Yellow 20150721 ----Exp date 20150721 ----Odor None 20150721 ----Lot # [id number] ----GLU Negative 20150721 ----ADELIA Negative 20150721 ----PIPPA Negative 20150721 ----NIT Negative 20150721 ----KET Negative 20150721 ----Lot # [id number] ----SG 1.025 20150721 ----URO 0.2 20150721 ----Exp date 20150721 ----Protein Negative 20150721 ROUTINE VENIPUNCTURE TRICHOMONAS (IN HOUSE) ----TRICHOMONAS negative 20150721 ----Control + 20150721 ----Lot # [id number] 20150721 ----Exp date 20150721 URINE DRUG SCREEN (IN HOUSE) ----THC Negative 20150721 ----MTD Negative 20150721 ----BENZO Negative 20150721 ----OPIATE Negative 20150721 ----BAR Negative 20150721 ----OXY Negative 20150721 ----PCP Negative 20150721 ----MDMA Negative 20150721 ----COCAINE Negative 20150721 ----AMPH Negative 20150721 ----Exp date 20150721 ----MAMP Negative 20150721 ----TCA Negative 20150721 ----Control + 20150721 ----Lot # [id number] Summary Purpose eClinicalWorks Submission
--- OUTSIDE RECORDS SUMMARY | 2018-02-26 14:19 | XMS REPORT ---
Author Author BARBARA KENDALL [facility] Address [address] [place] [address] Care Team Providers Care Streetcar Conductor Name Role Phone BARBARA KENDALL Unavailable PROBLEMS Type Condition ICD9-CM Code UWM30-TE Code Onset Dates Condition Status SNOMED Code Problem Insomnia, unspecified type G47.00 Active 110897745 Problem BMI 40.0-44.9, adult Z68.41 Active 942869924 Problem Constipation, unspecified K59.00 Active 19580376 Problem Obesity complicating , third trimester O99.213 Active 769343605397 Problem Nausea and vomiting during O21.9 Active 89406639 Problem Heartburn R12 Active 60116760 Problem Diseases of the digestive system complicating , third trimester O99.613 Active 20428186 Problem Supervision of normal first in third trimester Z34.03 Active 70253377 ALLERGIES No Information ENCOUNTERS Encounter Location Date Diagnosis [facility] [address] [id number][place] [id number] Dec, [facility] [id number][place] [id number] Dec, Supervision of normal first in third trimester Z34.03 ; Obesity complicating , third trimester O99.213 ; Diseases of the digestive system complicating , third trimester O99.613 ; Constipation , unspecified K59.00 ; Heartburn R12 ; Insomnia, unspecified type G47.00 ; Nausea and vomiting during O21.9 and BMI 45.0-49.9, adult Z68.42 [facility]ENTERHillerich & BradsbyTER Corona LabsE [id number], [place] [id number] November, [facility]ENTERNanya Technology CorporationE [id number], [place] [address] November, Obesity complicating , third trimester O99.213 ; Supervision of normal first in third trimester Z34.03 ; Constipation, unspecified K59.00 ; Diseases of the digestive system complicating , third trimester O99.613 ; Heartburn R12 ; Nausea and vomiting during O21.9 and BMI 45.0-49.9, adult Z68.42 [facility] [address] [id number], [place] [id number] November, [facility] [address] [id number], [place] [id number] Oct, Supervision of normal first in second trimester Z34.02 ; Insomnia, unspecified type G47.00 ; Obesity complicating in second trimester O99.212 ; Heartburn R12 ; Other specified related conditions , second trimester O26.892 ; Nausea and vomiting during O21.9 and BMI 40.0-44.9, adult Z68.41 [facility] [address] [place] [address] [id number] [id number] Oct, [facility] [address] [id number], [place] [id number] Oct, Dental examination Z01.20 [facility]AL[facility] [address] [id number], [place] [address] Sep, Supervision of normal first in second trimester Z34.02 ; Obesity complicating in second trimester O99.212 and Insomnia, unspecified type G47.00 [facility] [address] [id number], [place] [id number] Sep, Leukorrhea, vaginal, noninfectious N89.8 [facility] [address] [id number], [place] [id number] Sep, Supervision of normal first in first trimester Z34.01 and Obesity affecting in first trimester O99.211 [facility]AL[facility] [address] [id number], [place] [id number] Aug, Supervision of normal first in first trimester Z34.01 and Obesity affecting in first trimester O99.[address] [id number], [place] [id number] Aug, [facility] [address] [id number], [place] [id number] Aug, Supervision of normal first in first trimester Z34.01 and Obesity affecting in first trimester O99.211 [facility] [address] [id number], [place] [id number] Jul, [facility] [address] [id number], [place] [id number] Jul, BMI 40.0-44.9, adult Z68.41 ; Supervision of normal first in first trimester Z34.01 ; Leukorrhea, vaginal, noninfectious N89.8 and Obesity affecting in first trimester O99.211 [place] [address]00565100[place], [place] [address] Jul, [facility]ENTERDANIELA Horner [facility] [address] [id number], [place] [id number] Jun, Amenorrhea N91.2 [facility]ITALHumera ALVARADO [address] [place] [address] AV [id number], [place] [id number] Jun, Strep throat J02.0 [address] [place] [id number] May, Abscess L02.91 [place] [address]00565100[place], [place] [address]46 Jun, Vaginal discharge N89.8 ; Cellulitis, unspecified L03.90 ; Cutaneous abscess, unspecified L02.91 and Obesity E66.9 [address] [place] [id number] Mar, Abscess and cellulitis 682.9 [place] [id number] [place] [id number] Mar, Abscess and cellulitis 682.9 [address] [place] [address] [id number] Feb, Deep folliculitis 704.8 and Skin candidiasis 112.3 [facility] [address]00565100[place], [place] [address] Dec, Conjunctivitis 372.30 and Environmental allergies V15.09 [facility] [address]00565100[place], [place] [address]- [address] 14 Oct, 2014 [facility] [address]00565100[place], [place] [address]- [address] Oct, [facility] [address]00565100[place], [place] [address]- [address]46 Sep, [facility] [address]00565100[place], [place] [address]- [address] Sep, [facility]ITALK [address]00565100[place], [place] [id number] Jul, [facility] [address]00565100[place], [place] [address]- [address] Jul, [facility] [address]00565100[place], [place] [address]- 7584 May, [facility] [address]00565100[place], [place] [address]- 7487 May, [facility] [address]00565100[place], [place] [address]- [address]246 Apr, [facility] [address]00565100[place], [place] [address]- 6846 Apr, [facility] [address]00565100[place], [place] [address]- 3536 Apr, [facility] [address]00565100[place], [place] [address]- 9[address] Apr, [facility] [address]00565100[place], [place] [address]- [address] Mar, [facility] [address] [id number], [place] [address]- 3986 Mar, [facility] [place] [facility] [address] [id number] [place] [address]- 7784 Mar, [facility] [place] [facility] [address] [id number] [place] [address]- 9[address] Mar, [facility] [place] [facility] [address] [id number] [place]- [address] Mar, [facility] [place] [facility] [address] [id number] [place] [address]- 9956 Mar, [facility] [place] [address] [id number] [place] [address]- 8689 15 Mar, 2014 [facility] [place] [facility] [address] [id number] [place] [address]- 3429 Mar, [facility] [place] [address] [id number] [place] [address]- 5606 Mar, [facility] [place] [address] [id number] [place] [address]- 4499 Mar, [facility] [address] [id number][place] [id number] Oct, [facility] [place] [address] [id number] [place] [address]- 3084 Oct, [facility] [address] [id number], [place] [id number] Oct, [facility] [place] [facility] [address] [id number] [place] [address]- 5093 Oct, [facility] [place] [facility] [address] [id number] [place] [address]- 8608 Aug, [facility] [place] [facility] [address] [id number] [place] [address]- 8666 Aug, [facility] [place] [facility] [address] [id number] [place] [address]- 9856 Mar, [facility] [place] [facility] [address] [id number] [place] [address]- 4435 November, [facility] [address] [id number], [place] [address] November, [facility] [address]00565100[place], [place] [address]- 2086 Oct, [facility] [address] [id number], [place] [address]- 5694 Oct, [facility] [address]00565100[place], [place] [address]- [address] Aug, [facility] [address]00565100[place], [place] [address]- 4[address] May, [facility] [address]00565100[place], [place] [address]- 7524 May, [facility] [address] [id number], [place] [address]- 2849 May, IMMUNIZATIONS No Known Immunizations SOCIAL HISTORY Never Assessed REASON FOR VISIT test (walk-in)- [facility] PLAN OF CARE VITAL SIGNS MEDICATIONS Unknown Medications RESULTS No Results PROCEDURES Procedure Date Ordered Result Body Site ROUTINE VENIPUNCTURE 2017-07-19 N/A CHORIONIC GONADOTROPIN ASSAY Jul 19, 2017 INSTRUCTIONS MEDICATIONS ADMINISTERED No Known Medications MEDICAL (GENERAL) HISTORY Type Description Date Medical History obesity Medical History headache symdrome Medical History psychiatric disorders depression Medical History due date 03/19/2018 Surgical History [facility]
--- OUTSIDE RECORDS SUMMARY | 2018-02-26 14:19 | XMS REPORT ---
Author Author MARK MA [facility] Address [address] [place] [address] Care Team Providers Care Fire Fighters Dispatcher Name Role Phone MAMARK HOLCOMB Unavailable PROBLEMS Type Condition ICD9-CM Code [id number] Code Onset Dates Condition Status SNOMED Code Problem Contusion of unspecified site 924.9 Active 036212964 Problem Screening examination for pulmonary tuberculosis V74.1 Active 326880368 Problem Acute upper respiratory infections of unspecified site 465.9 Active 36219428 Problem Scabies 133.0 Active 355829255 Problem Intestinal infection due to other organism, NEC 008.8 Active 94447432 Problem Dizziness and giddiness 780.4 Active 281487129 Problem Contact dermatitis and other eczema, due to unspecified cause 692.9 Active 37255514 Problem Pain in joint, ankle and foot 719.47 Active 357769781 Problem Nausea with vomiting 787.01 Active 64108732 Problem Other diseases of nasal cavity and sinuses 478.19 Active 810291846 Problem Cough 786.2 Active 23407743 Problem 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 75728983 Problem Other acute sinusitis 461.8 Active 15798952 ALLERGIES Substance Reaction Event Type Date Status Penicillin V Potassium hives Drug Allergy May, Active SOCIAL HISTORY No smoking Hx information available PLAN OF CARE Activity Details Follow Up prn Reason:worsening VITAL SIGNS Height 66 in 2016-06-01 Weight 261.4 lbs 2016-06-01 Temperature 98.8 degrees Fahrenheit 2016-06-01 Heart Rate 80 bpm 2016-06-01 Respiratory Rate 32 2016-06-01 BMI 42.19 kg/m2 2016-06-01 Blood pressure systolic 125 mmHg 2016-06-01 Blood pressure diastolic 80 mmHg 2016-06-01 MEDICATIONS Medication Instructions Dosage Frequency Start Date End Date Duration Status Bactrim DS 800-160 MG Orally 2 times a day 1 tablet 12h May, May, 10 day(s) Active RESULTS Name Result Date Reference Range CULTURE, AEROBIC 2016-06-01 Aerobic Bacterial Culture Final report Result 1 Antimicrobial Susceptibility PROCEDURES Procedure Date Ordered Related Diagnosis Body Site Office Visit, Est Pt., Level 3 Jun 01, 2016 CULTURE, BACTERIA, OTHER Jun 01, 2016 IMMUNIZATIONS No Known Immunizations
--- OUTSIDE RECORDS SUMMARY | 2018-02-26 14:19 | XMS REPORT ---
Author Author SAYRA HUTCHISON [facility] eClinicalWorks Address Unknown Phone Unavailable Care Team Providers Care Web Services Architect Name Role Phone SAYRA HUTCHISON CP Unavailable [...] Instructions Start Date End Date Status Dosage Ultram [facility] [address]-50 50 MG Orally every 6 hrs Mar 23, 2015 1 tablet as needed Naprosyn [facility] [address]-89 500 MG Orally every 12 hrs Mar 23, 2015 1 tablet Bactrim DS [facility] [address]-36 800-160 MG Orally Once a day Mar 23, 2015 Apr 02, 2015 1 tablet Procedures Procedure Coding System Code Date CULTURE, BACTERIA, OTHER CPT-4 42727 Mar 23, 2015 DRAINAGE OF SKIN ABSCESS CPT-4 43944 Mar 23, 2015 CULTURE BACTERIA ANAEROBIC CPT-4 81960 Mar 23, 2015 Vital Signs Date/Time: Mar 23, 2015 Temperature 97.8 F Weight 271.1 lbs Height 66 in BMI 43.75 Index Blood Pressure Diastolic 70 mmHg Blood Pressure Systolic 120 mmHg Cardiac Monitoring Heart Rate 84 bpm BMIPercentile 98.86 % Wt Percentile 99.61 % Results No Known Results Summary Purpose eClinicalWorks Submission
--- OUTSIDE RECORDS SUMMARY | 2018-02-26 14:19 | XMS REPORT ---
Author Author SAYRA HUTCHISON eClinical[employer] Address Unknown Phone Unavailable Care Team Providers Care [employer] Program Coordinator Name Role Phone SAYRA HUTCHISON CP Unavailable [...] nasal cavity and sinuses 478.19 Active Assessment Deep folliculitis 704.8 Active Problem Scabies 133.0 Active Problem Intestinal infection due to other organism, NEC 008.8 Active Assessment Skin candidiasis 112.3 Active Problem Dizziness and giddiness 780.4 Active Medications Medication Code System Code Instructions Start Date End Date Status Dosage Nystatin-Triamcinolone [facility] [address]-05 976999-9.1 UNIT/GM-% Externally Twice a day Mar 11, 2015 1 application to affected area Bactrim DS [facility] [address]-40 800-160 MG Orally 2 times a day Mar 11, 2015 Mar 21, 2015 1 tablet Diflucan [facility] [address]-03 100 mg Orally Once a day Mar 11, 2015 Mar 21, 2015 1 tablet Procedures Procedure Coding System Code Date Office Visit, Est Pt., Level 3 CPT-4 69744 Mar 11, 2015 URINALYSIS, AUTO, W/O SCOPE CPT-4 29535 Mar 11, 2015 Vital Signs Date/Time: Mar 11, 2015 Temperature 98.6 F Weight 275.4 lbs Height 66 in BMI 44.45 Index Blood Pressure Diastolic 80 mmHg Blood Pressure Systolic 100 mmHg Cardiac Monitoring Heart Rate 88 bpm BMIPercentile 98.92 % Wt Percentile 99.64 % Results Name Result Date Reference Range Unit Abnormality Flag UA LONG DIP (IN HOUSE) Summary Purpose eClinicalWorks Submission
--- OUTSIDE RECORDS SUMMARY | 2018-02-26 14:19 | XMS REPORT | Continuity of Care Document ---
Author Author [facility] Address Unknown Phone Unavailable Allergies Active Description Code Type Severity Reaction Onset Reported/Identified Relationship to Patient Clinical Status Yes Penicillins Drug Allergy N/A N/A 05/26/2010 Medications There is no data. Problems Date Dx Coded Attending Type Code Diagnosis Diagnosed By 05/26/2010 KENDALL DO, BARBARA K 784.0 HEADACHE 05/26/2010 KENDALL DO, BARBARA K 784.0 HEADACHE 05/26/2010 784.0 HEADACHE 05/26/2010 784.0 HEADACHE 05/26/2010 KENDALL DO, BARBARA K 784.0 HEADACHE 05/26/2010 KENDALL DO, BARBARA K 784.0 HEADACHE 05/26/2010 ROCAEL DAVISON APRN 784.0 HEADACHE 05/26/2010 KENDALL DO, BARBARA K 784.0 HEADACHE 05/26/2010 KENDALL DO, ABRBARA K 784.0 HEADACHE 05/26/2010 KENDALL DO, BARBARA K 784.0 HEADACHE 05/26/2010 MEENU MEJIA APRN A 784.0 HEADACHE 06/01/2010 KENDALL DO, BARBARA K V70.3 SPORTS/SCHOOL EXAM 06/01/2010 KENDALL DO, BARBARA K V70.3 SPORTS/SCHOOL EXAM 06/01/2010 V70.3 SPORTS/SCHOOL EXAM 06/01/2010 V70.3 SPORTS/SCHOOL EXAM 06/01/2010 KENDALL DO, BARBARA K V70.3 SPORTS/SCHOOL EXAM 06/01/2010 KENDALL DO, BARBARA K V70.3 SPORTS/SCHOOL EXAM 06/01/2010 ROCAEL DAVISON APRN V70.3 SPORTS/SCHOOL EXAM 06/01/2010 KENDALL DO, BARBARA K V70.3 SPORTS/SCHOOL EXAM 06/01/2010 KENDALL DO, BARBARA K V70.3 SPORTS/SCHOOL EXAM 06/01/2010 KENDALL DO, BARBARA K V70.3 SPORTS/SCHOOL EXAM 06/01/2010 MEENU MEJIA APRN A V70.3 SPORTS/SCHOOL EXAM 09/11/2011 KENDALL DO, BARBARA K 008.8 GASTROENTERITIS VIRAL 09/11/2011 KENDALL DO, BARBARA K 008.8 GASTROENTERITIS VIRAL 09/11/2011 008.8 GASTROENTERITIS VIRAL 09/11/2011 008.8 GASTROENTERITIS VIRAL 09/11/2011 KENDALL DO, BARBARA K 008.8 GASTROENTERITIS VIRAL 09/11/2011 KENDALL DO, BARBARA K 008.8 GASTROENTERITIS VIRAL 09/11/2011 ROCAEL DAVISON APRN 008.8 GASTROENTERITIS VIRAL 09/11/2011 KENDALL DO, BARBARA K 008.8 GASTROENTERITIS VIRAL 09/11/2011 KENDALL DO, BARBARA K 008.8 GASTROENTERITIS VIRAL 09/11/2011 KENDALL DO, BARBARA K 008.8 GASTROENTERITIS VIRAL 09/11/2011 MEENU MEJIA APRN 008.8 GASTROENTERITIS VIRAL 10/24/2011 KENDALL DO, BARBARA K 787.01 nausea with vomiting 10/24/2011 KENDALL DO, BARBARA K 787.01 nausea with vomiting 10/24/2011 787.01 nausea with vomiting 10/24/2011 787.01 nausea with vomiting 10/24/2011 KENDALL DO, BARBARA K 787.01 nausea with vomiting 10/24/2011 KENDALL DO, BARBARA K 787.01 nausea with vomiting 10/24/2011 ROCAEL DAVISON APRN 787.01 nausea with vomiting 10/24/2011 KENDALL DO, BARBARA K 787.01 nausea with vomiting 10/24/2011 KENDALL DO, BARBARA K 787.01 nausea with vomiting 10/24/2011 KENDALL DO, BARBARA K 787.01 nausea with vomiting 10/24/2011 MEENU MEJIA APRN 787.01 nausea with vomiting 12/01/2011 KENDALL DO, BARBARA K 465.9 UPPER RESPIRATORY INFECTION 12/01/2011 KENDALL DO, BARBARA K 924.9 BRUISE/CONTUSION UNSPECIFIED SITE 12/01/2011 KENDALL DO, BARBARA K 465.9 UPPER RESPIRATORY INFECTION 12/01/2011 KENDALL DO, BARBARA K 924.9 BRUISE/CONTUSION UNSPECIFIED SITE 12/01/2011 465.9 UPPER RESPIRATORY INFECTION 12/01/2011 924.9 BRUISE/ CONTUSION UNSPECIFIED SITE 12/01/2011 465.9 UPPER RESPIRATORY INFECTION 12/01/2011 924.9 BRUISE/ CONTUSION UNSPECIFIED SITE 12/01/2011 KENDALL DO, BARBARA K 465.9 UPPER RESPIRATORY INFECTION 12/01/2011 KENDALL DO, BARBARA K 924.9 BRUISE/CONTUSION UNSPECIFIED SITE 12/01/2011 KENDALL DO, BARBARA K 465.9 UPPER RESPIRATORY INFECTION 12/01/2011 KENDALL DO, BARBARA K 924.9 BRUISE/CONTUSION UNSPECIFIED SITE 12/01/2011 EATON USER EXPERIENCE RESEARCHER, ROCAEL L 465.9 UPPER RESPIRATORY INFECTION 12/01/2011 EATON USER EXPERIENCE RESEARCHER, ROCAEL L 924.9 BRUISE/CONTUSION UNSPECIFIED SITE 12/01/2011 KENDALL DO, BARBARA K 465.9 UPPER RESPIRATORY INFECTION 12/01/2011 KENDALL DO, BARBARA K 924.9 BRUISE/CONTUSION UNSPECIFIED SITE 12/01/2011 KENDALL DO, BARBARA K 465.9 UPPER RESPIRATORY INFECTION 12/01/2011 KENDALL DO, BARBARA K 924.9 BRUISE/CONTUSION UNSPECIFIED SITE 12/01/2011 KEDNALL DO, BARBARA K 465.9 UPPER RESPIRATORY INFECTION 12/01/2011 KENDALL DO, BARBARA K 924.9 BRUISE/CONTUSION UNSPECIFIED SITE 12/01/2011 JACKIE USER EXPERIENCE RESEARCHER, MEENU A 465.9 UPPER RESPIRATORY INFECTION 12/01/2011 JACKIE USER EXPERIENCE RESEARCHER, MEENU A 924.9 BRUISE/CONTUSION UNSPECIFIED SITE 12/08/2011 KENDALL DO, BARBARA K 780.4 DIZZINESS AND VERTIGO 12/08/2011 KENDALL DO, BARBARA K 780.4 DIZZINESS AND VERTIGO 12/08/2011 780.4 DIZZINESS AND VERTIGO 12/08/2011 780.4 DIZZINESS AND VERTIGO 12/08/2011 KENDALL DO, BARBARA K 780.4 DIZZINESS AND VERTIGO 12/08/2011 KENDALL DO, BARBARA K 780.4 DIZZINESS AND VERTIGO 12/08/2011 EATON USER EXPERIENCE RESEARCHER, ROCAEL L 780.4 DIZZINESS AND VERTIGO 12/08/2011 KENDALL DO, BARBARA K 780.4 DIZZINESS AND VERTIGO 12/08/2011 KENDALL DO, BARBARA K 780.4 DIZZINESS AND VERTIGO 12/08/2011 KENDALL DO, BARBARA K 780.4 DIZZINESS AND VERTIGO 12/08/2011 JACKIE USER EXPERIENCE RESEARCHER, MEENU A 780.4 DIZZINESS AND VERTIGO 10/20/2013 KENDALL DO, BARBARA K 719.47 PAIN- ANKLE 10/20/2013 719.47 PAIN- ANKLE 10/20/2013 719.47 PAIN- ANKLE 10/20/2013 KENDALL DO, BARBARA K 719.47 PAIN- ANKLE 10/20/2013 KENDALL DO, BARBARA K 719.47 PAIN- ANKLE 10/20/2013 ROCAEL DAVISON APRN 719.47 PAIN- ANKLE 10/20/2013 KENDALL DO, BARBARA K 719.47 PAIN- ANKLE 10/20/2013 KENDALL DO, BARBARA K 719.47 PAIN- ANKLE 10/20/2013 KENDALL DO, BARBARA K 719.47 PAIN- ANKLE 10/20/2013 MEENU MEJIA APRN 719.47 PAIN- ANKLE 03/30/2014 V74.1 TB SCREENING 03/30/2014 V74.1 TB SCREENING 03/30/2014 KENDALL DO, BARBARA K V74.1 TB SCREENING 03/30/2014 KENDALL DO, BARBARA K V74.1 TB SCREENING 03/30/2014 ROCAEL DAVISON APRN V74.1 TB SCREENING 03/30/2014 KENDALL DO, BARBARA K V74.1 TB SCREENING 03/30/2014 KENDALL DO, BARBARA K V74.1 TB SCREENING 03/30/2014 KENDALL DO, BARBARA K V74.1 TB SCREENING 03/30/2014 MEENU MEJIA APRN V74.1 TB SCREENING 04/15/2014 KENDALL DO, BARBARA K 133.0 SCABIES 04/15/2014 KENDALL DO, BARBARA K 133.0 SCABIES 04/15/2014 ROCAEL DAVISON APRN 133.0 SCABIES 04/15/2014 KENDALL DO, BARBARA K 133.0 SCABIES 04/15/2014 KENDALL DO, BARBARA K 133.0 SCABIES 04/15/2014 KENDALL DO, BARBARA K 133.0 SCABIES 04/15/2014 MEENU MEJIA APRN A 133.0 SCABIES 04/27/2014 KENDALL DO, BARBARA K 708.0 ALLERGIC URTICARIA 04/27/2014 ROCAEL DAVISON APRN 708.0 ALLERGIC URTICARIA 04/27/2014 KENDALL DO, BARBARA K 708.0 ALLERGIC URTICARIA 04/27/2014 KENDALL DO, BARBARA K 708.0 ALLERGIC URTICARIA 04/27/2014 KENDALL DO, BARBARA K 708.0 ALLERGIC URTICARIA 04/27/2014 JACKIE USER EXPERIENCE RESEARCHER, MEENU A 708.0 ALLERGIC URTICARIA 07/29/2014 KENDALL DO, BARBARA K 461.8 OTHER ACUTE SINUSITIS 07/29/2014 KENDALL DO, BARBARA K 478.19 OTHER DISEASES OF NASAL CAVITY AND SINUSES 07/29/2014 KENDALL DO BARBARA K 786.2 COUGH 07/29/2014 KENDALL DO BARBARA K 461.8 OTHER ACUTE SINUSITIS 07/29/2014 KENDALL DO, BARBARA K 478.19 OTHER DISEASES OF NASAL CAVITY AND SINUSES 07/29/2014 KENDALL DO, BARBARA K 786.2 COUGH 07/29/2014 KENDALL DO, BARBARA K 461.8 OTHER ACUTE SINUSITIS 07/29/2014 KENDALL DO, BARBARA K 478.19 OTHER DISEASES OF NASAL CAVITY AND SINUSES 07/29/2014 KENDALL DO, BARBARA K 786.2 COUGH 07/29/2014 JACKIE USER EXPERIENCE RESEARCHER, MEENU A 461.8 OTHER ACUTE SINUSITIS 07/29/2014 JACKIE USER EXPERIENCE RESEARCHER, MEENU A 478.19 OTHER DISEASES OF NASAL CAVITY AND SINUSES 07/29/2014 JACKIE USER EXPERIENCE RESEARCHER, MEENU A 786.2 COUGH 10/06/2014 FAIZA ALANIZ BARBARA K 692.9 CONTACT DERMATITIS AND OTHER ECZEMA UNSPECIFIED CAUSE 10/06/2014 KENDALL DO, BARBARA K 692.9 CONTACT DERMATITIS AND OTHER ECZEMA UNSPECIFIED CAUSE 10/06/2014 JACKIE USER EXPERIENCE RESEARCHER, MEENU A 692.9 CONTACT DERMATITIS AND OTHER ECZEMA UNSPECIFIED CAUSE 11/02/2014 VARGAS KENDALL DOA K 461.9 SINUSITIS ACUTE 11/02/2014 KENDALL DO, BARBARA K 466.0 BRONCHITIS, ACUTE 11/02/2014 JACKIE USER EXPERIENCE RESEARCHER, MEENU A 461.9 SINUSITIS ACUTE 11/02/2014 JACKIE USER EXPERIENCE RESEARCHER, MEENU A 466.0 BRONCHITIS, ACUTE 11/03/2014 JACKIE USER EXPERIENCE RESEARCHER, MEENU A 112.1 CANDIDIASIS VAGINAL 11/03/2014 JACKIE USER EXPERIENCE RESEARCHER, MEENU A 112.3 CANDIDIASIS OF SKIN AND NAILS Procedures Code Description [place] [address] STREP A (IN-HOUSE) 09/10/2013 32782 XRAY ANKLE R COMP MIN, 3 VIEWS 10/20/2013 72719 XRAY FOOT RIGHT COMP MIN 3 VIEWS 10/20/2013 33239 TB TEST INTRADERMAL 04/05/2014 98236 TB TEST INTRADERMAL 04/13/2014 94468 CMP 04/27/2014 98922 TSH 04/27/2014 38907 CBC 04/27/2014 16497 SED/ESR RATE RML 04/27/2014 77700 CRP 04/27/2014 79959 THERAPUTIC INJ SQ/IM 04/27/2014 90293 ROUTINE VENIPUNCTURE 04/27/2014 67622 UA LONG DIP 04/27/2014 J3301 KENALOG INJ, PER 10 MG 04/27/2014 41570 OXIMETRY 10/25/2014 Results Test Result Range TEST, SERUM (QUAL) - 07/19/17 10:49 HCG, TOTAL, QL POSITIVE See Note: CULTURE, GENITAL - 09/02/17 14:55 CULTURE, GENITAL SEE NOTE NRG SUREPATH PAP RFX HPV mRNA E6/E7 - 09/02/17 14:55 CLINICAL INFORMATION: NRG LMP: [id number] NRG PREV. PAP: WNL NRG PREV. BX: NRG SOURCE: [employer] NRG STATEMENT OF ADEQUACY: NRG INTERPRETATION/RESULT: NRG HEALTH CARE FACILITIES INSPECTOR: ZO QNATAL - 09/19/17 16:06 NUMBER OF FETUSES? 1 NRG ADVANCED MATERNAL AGE? NO NRG ABNORMAL RICK? NO NRG ABNORMAL US? NO NRG PERSONAL/FAM HISTORY? NO NRG INTERPRETATION SEE NOTE NRG TRISOMY 21 (T21) Negative NRG TRISOMY 18 (T18) Negative NRG TRISOMY 13 (T13) Negative NRG Y CHROMOSOME Detected NRG Y CHR. INTERPRETATION SEE NOTE NRG SEX CHROMOSOME No aneuploidy NRG SEX CHROMOSOME INTERP SEE NOTE NRG MICRODELETION Not detected NRG MICRODELETION INTERP SEE NOTE NRG GESTATIONAL AGE(IN WEEKS) 14 NRG GESTATIONAL AGE (IN DAYS) 1 NRG FRACTION 5.15% NRG LABORATORY COMMENTS SEE NOTE NRG LIMITATIONS SEE NOTE NRG SPECIFICATIONS SEE NOTE NRG METHODOLOGY SEE NOTE NRG QUAD SCREEN - 10/14/17 15:47 Maternal Weight 267 lbs NRG Est'd Date of Delivery 03/19/2018 NRG MEHNAZ Determined by ULTRASOUND NRG Mother's Ethnic Origin NRG Number of Fetuses 1 NRG Insulin Depend Diabetic NO NRG Repeat Specimen NO NRG Hx Of Neural Tube Defects NO NRG Prev Down Synd NO NRG Donor Egg NO NRG Donor Age: Egg Retrieval NOT GIVEN NRG INTERPRETATION: NRG Risk for ONTD <1 IN 5000 NRG Age Risk Down Syndrome 1 IN 1137 NRG RICK Down Syndrome Risk <1 IN 5000 NRG RICK Trisomy 18 Risk <1 IN 5000 NRG AFP, Serum 34.1 ng/mL NRG AFP MoM 1.18 NRG Estriol, Free 1.93 ng/mL NRG Estriol MoM 2.01 NRG hCG, Serum 33.82 IU/mL NRG hCG MoM 1.83 NRG Inhibin A, Dimeric 151 pg/mL NRG Inhibin A MoM 1.17 NRG COMMENTS: NRG COMMENT NRG Calc'd Gestational Age 17.7 weeks NRG Cigarette smoker NOT GIVEN NRG SYPHILIS (RPR W/ REFLEX CONFIRMATION) - 12/09/17 15:13 RPR (DX) W/REFL TITER AND CONFIRMATORY TESTING NON-REACTIVE NON-REACTIVE Encounters ACCT No. Visit Date/Time Discharge Status Pt. Type Provider Facility Loc./Unit Complaint [id number] 11/03/2014 09:32:00 11/03/2014 23:59:59 CLS Outpatient MEENU MEJIA APRN [id number] 11/02/2014 13:52:00 11/02/2014 23:59:[address] [facility] Outpatient BARBARA KENDALL DO [id number] 10/25/2014 12:36:00 10/25/2014 23:59:59 CLS Outpatient BARBARA KENDALL DO [id number] 07/29/2014 11:27:00 07/29/2014 23:59:59 CLS Outpatient BARBARA KENDALL DO [id number] 04/27/2014 11:05:00 04/27/2014 23:59:59 CLS Outpatient SAMAN ТАТЬЯНА ROCAEL L [id number] 04/27/2014 11:05:00 04/27/2014 23:59:59 CLS Outpatient BARBARA KENDALL DO [id number] 04/15/2014 11:01:00 04/15/2014 23:59:59 CLS Outpatient BARBARA KENDALL DO [id number] 04/06/2014 13:46:00 04/06/2014 23:59:59 CLS Outpatient [id number] 03/30/2014 20:03:00 03/30/2014 23:59:59 CLS Outpatient [id number] 10/20/2013 14:35:00 10/20/2013 23:59:59 CLS Outpatient BARBARA KENDALL DO [id number] 09/10/2013 08:59:00 09/10/2013 23:59:59 [place] [id number] 02/14/2018 11:20:00 02/14/2018 23:59:59 CLS Outpatient [facility] [id number] 12/09/2017 14:00:00 Document Registration [id number] 10/14/2017 14:00:00 Document Registration [id number] 09/19/2017 16:00:00 Document Registration [id number] 09/02/2017 14:00:00 Document Registration [id number] 07/19/2017 10:40:00 Document Registration
[2018-02-26 14:22] LABS: BASOPHILS % (AUTO) 0 % (0-10); EOSINOPHILS # (AUTO) 0.1 10^3/uL (0.0-0.3); EOSINOPHILS % (AUTO) 1 % (0-10); HEMATOCRIT 36 % (35-52); HEMOGLOBIN 12.5 G/DL (11.5-16.0); LYMPHOCYTES # (AUTO) 1.9 X 10^3 (1.0-4.0); LYMPHOCYTES % (AUTO) 16 % (12-44); MEAN CORPUSCULAR HEMOGLOBIN 31 PG (25-34); MEAN CORPUSCULAR HGB CONC 35 G/DL (32-36); MEAN CORPUSCULAR VOLUME 87 FL (80-99); MEAN PLATELET VOLUME 10.2 FL (7.4-10.4); MONOCYTES # (AUTO) 0.5 X 10^3 (0.0-1.0); MONOCYTES % (AUTO) 5 % (0-12); NEUTROPHILS # (AUTO) 9.3 X 10^3 (1.8-7.8); NEUTROPHILS % (AUTO) 78 % (42-75); PLATELET COUNT 355 10^3/uL (130-400); RED BLOOD COUNT 4.08 10^6/uL (4.35-5.85); RED CELL DISTRIBUTION WIDTH 13.4 % (10.0-14.5); WHITE BLOOD COUNT 11.8 10^3/uL (4.3-11.0)
[2018-02-26] MEDS ORDERED: BUPIVACAINE 0.25% 30 ML (SENSORCAINE) VIAL ONE ×2 (14:25→22:53)
[2018-02-26] MEDS ORDERED: fentaNYL INJECTION 100 MCG/2 ML AMP ONE ×2 (14:26→22:44)
[2018-02-26] MEDS ORDERED: SUFENTA 0.6MCG/ML BUPIVA 0.125 100 ML ONE (14:35)
[2018-02-26] MEDS ORDERED: LACTATED RINGERS 1,000 ML IV ONE (15:18)
[2018-02-26] MEDS ORDERED: CATHETER FLUSH 10 ML SYR IV PRN (15:30)
[2018-02-26] MEDS ORDERED: EPIDURAL (SUFENTA 0.6MCG/ML BUPIVA 0.125%) 100 ML BAG EPI SCH (15:30)
[2018-02-26] MEDS ORDERED: diphenhydrAMINE 50 MG/ML INJ (BENADRYL) IV PRN (15:30)
[2018-02-26] MEDS ORDERED: NALOXONE 0.4 MG/ML 1 ML (NARCAN) VIAL IV PRN (15:30)
[2018-02-26] MEDS: ONDANSETRON 4 MG/2 ML (SDV) Z0FRAN IV PRN ×2 (17:23→21:45)
[2018-02-26] MEDS ORDERED: CITRIC ACID/SOB CIT (BICITRA) 30 ML UDC ONE (21:37)
[2018-02-26] MEDS ORDERED: metroNIDAZOLE 500MG/100ML IVPB 100 ML ONE (21:37)
[2018-02-26] MEDS ORDERED: raNItidine 50 MG/2 ML INJ (ZANTAC) ONE (21:37)
[2018-02-26] MEDS ORDERED: ceFAZolin 2 GM IV Premixed 50 ML ONE (21:37)
[2018-02-26] MEDS ORDERED: METOCLOPRAMIDE INJ 10 MG/2 ML (REGLAN) ONE (21:37)
--- NOTE | 2018-02-26 22:24 | Progress Note-Pre Operative ---
Pre-Operative Progress Note H&P Reviewed The H&P was reviewed, patient examined and no changes noted. Date Seen by Provider: Feb 26, 2018 Time Seen by Provider: 22:24 Date H&P Reviewed: Feb 26, 2018 Time H&P Reviewed: 22:24 Pre-Operative Diagnosis: Term in labor with bed progress/CPD FRANK FERNANDEZ MD Feb 26, 2018 22:24
[2018-02-26] MEDS ORDERED: D5 LR IV SOLUTION 1,000 ML IV ONE (22:29)
[2018-02-26] MEDS ORDERED: MEASLES,MUMPS,RUBELLA 1 EA INJ SC ONE (22:30)
[2018-02-26] MEDS ORDERED: KETOROLAC 30 MG/ML VIAL IVP SCH (22:30)
[2018-02-26] MEDS ORDERED: ONDANSETRON 4 MG/2 ML (SDV) Z0FRAN IVP PRN (22:30)
[2018-02-26] MEDS ORDERED: MEPERIDINE (DEMEROL) INJ 100 MG/ML IM PRN (22:30)
[2018-02-26] MEDS ORDERED: PROMETHAZINE INJ 25 MG/ML (PHENERGAN) AMP IM PRN (22:30)
[2018-02-26] MEDS ORDERED: TETANUS,DIPTH,PERTUSS P/F (BOOSTRIX) 0.5 ML VIAL IM ONE (22:30)
[2018-02-26] MEDS ORDERED: OXYTOCIN/NORMAL SALINE 0 ML IV ONE (22:40)
[2018-02-26] MEDS ORDERED: OXYTOCIN/NORMAL SALINE 500 ML IV ONE (22:53)
[2018-02-26] MEDS ORDERED: CITRIC ACID/SOB CIT (BICITRA) 30 ML UDC PO ONE (23:15)
[2018-02-26] MEDS ORDERED: METOCLOPRAMIDE INJ 10 MG/2 ML (REGLAN) IV ONE (23:15)
[2018-02-26] MEDS ORDERED: raNItidine INJECTION 50 MG in NS (IVPB) 50 ML IV ONE (23:15)
[2018-02-26] MEDS ORDERED: ONDANSETRON 4 MG/2 ML (SDV) Z0FRAN ONE (23:36)
--- NOTE | 2018-02-27 01:46 | OPERATIVE REPORT ---
DATE OF SERVICE: 02/26/2018 PREOPERATIVE DIAGNOSES: Term with spontaneous rupture of membranes and failure to progress in labor and cephalopelvic disproportion. POSTOPERATIVE DIAGNOSES: Term with spontaneous rupture of membranes and failure to progress in labor and cephalopelvic disproportion with persistent OP. OPERATIVE PROCEDURE: Primary low transverse delivery of a viable male infant with Apgars of 7 and 8 at 1 and 5 minutes respectively, weight 7 pounds 6 ounces and a time of 23:21. COMPENSATION SUPERVISOR FOR THE DELIVERY: Dr. Bhagat. CANDY CUTTER MACHINE FOR DELIVERY: Dr. Bhagat. OPERATIVE DESCRIPTION: With the patient in the supine position under satisfactory epidural analgesia, the abdomen was prepped and the patient was draped in the usual fashion for abdominal surgery. The patient had a large panniculus and this was retracted by placing towel clips in the inferior margin of the right upper quadrant, in the inferior margin of the left upper quadrant and then fixing those towel clips to extension at the head of the bed to retract the panniculus cephalad. With the lower abdomen exposed and prepped, the patient was draped and then a Pfannenstiel incision made through skin with a scalpel. The patient's abdomen was entered in the usual manner. A lot of omentum and bowel was anterior to the uterus this was swept up out of the way and then mild fundal pressure brought the uterus against the abdominal wall exposing the lower uterine segment. A 4 cm hysterotomy incision was made transversely across lower uterine segment that the incision did enter the placenta. Digital dissection was carried into the intrauterine cavity and then the incision was extended bluntly and then a vigorous viable male was delivered from straight OP position via the uterine incision. The was bulb suctioned on delivery of the head and again on completion of delivery. Umbilical cord was doubly clamped and cut and the taken to the warmer by Dr. Bhagat, the compensation business partner in attendance for delivery. Cord bloods were obtained. The placenta was exteriorized. The interior was wiped clean with a wet laparotomy sponge. Uterine incision then closed with a running locked suture of 2-0 Vicryl. Hemostasis was relatively satisfactory. However, the uterus was quite atonic responding only minimally to massage and to IV Pitocin. Sutures of #1 chromic were placed in a modified B-Woods fashion to compress the uterus, this stemmed the blood loss. This had nice effect. The uterus was returned to abdominal cavity. All blood clot and debris was removed from the abdominal cavity. With sponge and needle counts were correct, the anterior parietal peritoneum was closed with a running suture of 2-0 Vicryl, rectus muscles were closed with that suture as well. The rectus fascia was closed with 2-0 Vicryl, subcutaneous tissue was closed with 2-0 Vicryl and the skin was stapled. Sponge and needle counts were correct at the end of procedure. Estimated blood loss for procedure was around 1000 mL. The patient tolerated the procedure well and was transferred to recovery room in stable condition. The infant had been taken stable to the full term nursery under the care of the pediatric nurse and Dr. Bhagat. Job ID: [id number] DocumentID: [id number] Dictated Date: 02/27/2018 00:01:26 Maintenance Electrician Date: 02/27/2018 01:46:02 Dictated By: FRANK FERNANDEZ MD MTDD
[2018-02-27] MEDS: oxyCODONE/APAP 10/325MG (PERCOCET 10) TABLET PO PRN ×5 (02:22→22:12)
[2018-02-27 02:24] VITALS: BP 128/59
[2018-02-27 05:49] LABS: BASOPHILS % (AUTO) 0 % (0-10); EOSINOPHILS % (AUTO) 0 % (0-10); HEMATOCRIT 29 % (35-52); HEMOGLOBIN 9.8 G/DL (11.5-16.0); LYMPHOCYTES # (AUTO) 1.9 X 10^3 (1.0-4.0); LYMPHOCYTES % (AUTO) 16 % (12-44); MEAN CORPUSCULAR HEMOGLOBIN 30 PG (25-34); MEAN CORPUSCULAR HGB CONC 34 G/DL (32-36); MEAN CORPUSCULAR VOLUME 88 FL (80-99); MONOCYTES # (AUTO) 0.8 X 10^3 (0.0-1.0); MONOCYTES % (AUTO) 7 % (0-12); NEUTROPHILS # (AUTO) 9.1 X 10^3 (1.8-7.8); NEUTROPHILS % (AUTO) 77 % (42-75); PLATELET COUNT 322 10^3/uL (130-400); RED CELL DISTRIBUTION WIDTH 13.6 % (10.0-14.5); WHITE BLOOD COUNT 11.9 10^3/uL (4.3-11.0)
[2018-02-27 06:00] VITALS: BP 128/67
--- NOTE | 2018-02-27 07:58 | Progress Note-Standard ---
Standard Progress Note Progress Notes/Assess & Plan Date Seen by Provider: Feb 27, 2018 Time Seen by Provider: 07:57 Progress/Assessment & Plan This patient is without complaint. She is ambulating voiding. She is tolerating oral intake well has good pain control. Patient denies chest pain, denies shortness of breath, denies nausea vomiting, and denies headache. Vital Signs 02/27/18 06:00 Temp 98.6 Pulse 110 Resp 18 B/P (MAP) 128/67 (87) Pulse Ox 98 O2 Delivery Room Air Vital signs are stable. Patient afebrile. The abdomen is benign Extreme show no clubbing cyanosis. There is no Homans sign. There is notable pretibial pitting edema that is not new for this patient. Assessment and plan post operative day number 1 status post primary delivery doing well. Plan is for routine convalescence care FRANK FERNANDEZ MD Feb 27, 2018 7:58 am
[2018-02-27 08:00] VITALS: BP 123/72
[2018-02-27] MEDS ORDERED: IBUPROFEN 800 MG (MOTRIN) TAB PO ONE ×2 (08:05→15:20)
[2018-02-27] MEDS: DOCUSATE SODIUM 100 MG (COLACE) CAP PO SCH (08:19)
[2018-02-27] MEDS: IBUPROFEN 800 MG (MOTRIN) TAB PO SCH ×3 (08:20→21:57)
[2018-02-27 12:30] VITALS: BP 115/64
--- NOTE | 2018-02-27 13:38 | Anesthesia-Regional Post-Op ---
Regional Patient Condition Mental Status: Alert, Oriented x3 Circulation: Same as Pre-Op Headache: Absent Sensation: Full Recovery Motor Block: Absent Post Op Complications Complications None Follow Up Care/Instructions Patient Instructions None needed. Anesthesia/Patient Condition Patient is doing well, no complaints, stable vital signs, no apparent adverse anesthesia problems. No complications reported per nursing. KAREN DUNBAR CRNA Feb 27, 2018 13:38
[2018-02-27 17:30] VITALS: BP 124/63
[2018-02-27 22:13] VITALS: BP 129/71
[2018-02-28 04:05] VITALS: BP 122/72
[2018-02-28] MEDS: IBUPROFEN 800 MG (MOTRIN) TAB PO SCH ×3 (04:05→16:57)
[2018-02-28 08:00] VITALS: BP 133/60
--- NOTE | 2018-02-28 08:01 | Progress Note-Standard ---
Standard Progress Note Progress Notes/Assess & Plan Date Seen by Provider: Feb 28, 2018 Time Seen by Provider: 07:59 Progress/Assessment & Plan This patient is without complaint. She is ambulating voiding. She is tolerating oral intake well has good pain control. Patient denies chest pain, denies shortness of breath, denies nausea vomiting, and denies headache. Vital Signs 02/27/18 06:00 Temp 98.6 Pulse 110 Resp 18 B/P (MAP) 128/67 (87) Pulse Ox 98 O2 Delivery Room Air Vital signs are stable. Patient afebrile. The abdomen is benign Extreme show no clubbing cyanosis. There is no Homans sign. There is notable pretibial pitting edema that is not new for this patient. Assessment and plan post operative day number 1 status post primary delivery doing well. Plan is for routine convalescence care February 28, 2015 Patient without complaint. She is ablating, voiding, tolerating oral intake well. Patient has good pain control. Patient is ambulating readily. Vital Signs 02/28/18 04:05 Temp 98.1 Pulse 98 Resp 18 B/P (MAP) 122/72 (89) Pulse Ox 98 O2 Delivery Room Air Signs are stable. Patient is afebrile. The abdomen is benign. She is morbidly obese. The surgical incision is clean dry and intact. Extreme show no clubbing or cyanosis. There is no Homans sign. Assessment and plan postoperative day number 2 status post primary delivery doing well. Plan is for routine convalescence care today and likely discharge home tomorrow FRANK FERNANDEZ MD Feb 28, 2018 8:01 am
[2018-02-28] MEDS ORDERED: OXYC-465 PO (08:04)
[2018-02-28] MEDS ORDERED: IBUP-1780 PO (08:04)
[2018-02-28] MEDS ORDERED: DOCU100C37 PO (08:04)
--- NOTE | 2018-02-28 08:05 | Discharge Instructions ---
Discharge Instructions Discharge Medications New, Converted or Re-Newed RX: RX on Chart Patient Instructions Patient Instructions: As directed Return to The Hospital For: As directed Activity & Diet Discharge Diet: No Restrictions Activity as Tolerated: No Orders-Post D/C & Referrals Follow Up Appt: RTC next Saturday at 930 a.m. for incision check. Call to make follow up appt. for patient in [address] Alexandra. Wound Care: Remove arben, apply benzoin and steri strips. Activity Per routine post instructions. Diet as tolerated Patient may shower or tub bathe as desired. Continue home meds FRANK FERNANDEZ MD Feb 28, 2018 8:05 am
[2018-02-28] MEDS: oxyCODONE/APAP 10/325MG (PERCOCET 10) TABLET PO PRN ×2 (08:23→16:57)
[2018-02-28] MEDS: DOCUSATE SODIUM 100 MG (COLACE) CAP PO SCH ×2 (08:23→21:07)
[2018-02-28] MEDS ORDERED: SIMETHICONE 80 MG (MYLICON) CHEW ONE (08:37)
[2018-02-28] MEDS: SIMETHICONE 80 MG (MYLICON) CHEW PO PRN ×2 (08:41→16:57)
[2018-02-28 14:00] VITALS: BP 125/78
[2018-02-28 21:10] VITALS: BP 123/77
[2018-02-28 23:45] VITALS: BP 117/69
[2018-03-01] MEDS: IBUPROFEN 800 MG (MOTRIN) TAB PO SCH ×3 (00:09→11:30)
[2018-03-01] MEDS: oxyCODONE/APAP 10/325MG (PERCOCET 10) TABLET PO PRN ×2 (01:06→11:30)
[2018-03-01] MEDS: SIMETHICONE 80 MG (MYLICON) CHEW PO PRN ×2 (05:24→12:10)
[2018-03-01 05:26] VITALS: BP 112/67
--- NOTE | 2018-03-01 08:14 | Discharge Summary ---
Discharge Summary Primary delivery This patient is a 22-year-old primigravida now primiparous patient of Dr. Bhagat who was admitted on February 26, 2018 for labor secondary to spontaneous rupture membranes. She did labor through the day on February 26 making essentially no progress in labor. I was consulted for delivery secondary to failure to progress/CPD. Patient was taken the operating room where under epidural analgesia performed without event. The patient recovered uneventfully. On February 27 patient was ambulating, voiding, tolerating oral intake, had good pain control. She did have some issues with bowel gas but that improved with Mylicon. She was stable through the day. On February 28 patient was again without complaints she is ambulating, voiding, tolerating oral intake well and had routine care. Now on March 01 this is postoperative day number 3 patient again is doing well she is ablating, voiding, tolerating oral intake well has good pain control. She denies chest pain, denies shortness breath, denies nausea vomiting, denies denies headache. Her gas pain is improved with her mother. She is requesting discharge home. Principal diagnoses this hospitalization is term primary delivery at 37 weeks gestation Secondary diagnoses are. Progress in labor, spontaneous rupture membranes, CPD/ persistent OP, morbid obesity Operation procedures include Pitocin augmentation of labor monitoring IV fluids epidural labor analgesia and epidural primary delivery. Patient was given appropriate discharge instructions verbally and writing and a copy in the chart. Discharge medications are Percocet and Motrin and Colace. Patient is continue her home medications. Clinical Quality Measures DVT/VTE Risk/Contraindication: Risk Factor Score Per Nursin RFS Level Per Nursing on Admit: 2=Moderate FRANK FERNANDEZ MD Mar 01, 2018 8:14 am
[2018-03-01] MEDS: DOCUSATE SODIUM 100 MG (COLACE) CAP PO SCH (09:00)
[2018-03-01 09:30] VITALS: BP 127/76
[2018-03-01] MEDS ORDERED: ONDANSETRON 8 MG (ZOFRAN) ORAL DISSOLVE TAB PO NR (12:31)
== END 2018-03-01 15:00 | disposition home or self-care (01) | DRG 765 ==
LOC: LDRP 11:59 → WSo 12:03 → LDRP 12:14 → 3RD 02-28 09:44 → LDRP 02-28 09:44
PROVIDERS: ADMIT Family Medicine; ATTEND Family Medicine
PROC: 10D00Z1 Extraction of Products of Conception, Low, Open Approach (ICD-10-PCS; principal; 2018-02-27)
DX: O42.02 Full-term premature rupture of membranes, onset of labor within 24 hours of rupture (principal); Z68.42 Body mass index [BMI] 45.0-49.9, adult; O99.214 Obesity complicating childbirth; O33.9 Maternal care for disproportion, unspecified; E66.01 Morbid (severe) obesity due to excess calories; O99.344 Other mental disorders complicating childbirth; O99.353 Diseases of the nervous system complicating pregnancy, third trimester; F32.9 Major depressive disorder, single episode, unspecified; G47.00 Insomnia, unspecified; O99.62 Diseases of the digestive system complicating childbirth; K59.00 Constipation, unspecified; R12 Heartburn; Z3A.37 37 weeks gestation of pregnancy; Z37.0 Single live birth
CPT/HCPCS: 36415; 85025; 86850; 86900; 86901; 94664; 99212